=== PATIENT | male | born 1950 | race Caucasian/White ===

== ENCOUNTER 2018-04-30 16:59 | Inpatient (IN) | payer MEDICARE ==
[2018-04-30] MEDS ORDERED: Heparin for STEMI(*) 5,000 UNITS/ML 1 ML VIAL IV ONE ×2 (17:03→17:06)
[2018-04-30] MEDS ORDERED: Nitroglycerin TAB 0.4 MG* 0.4 MG TAB ONE (17:03)
[2018-04-30] MEDS ORDERED: Heparin DRIP 25,000 UNITS(*) 25,000 UNITS/500 ML BAG ONE (17:04)
[2018-04-30] MEDS ORDERED: Ticagrelor* 90 MG TAB PO ONE ×2 (17:04→17:35)
[2018-04-30] MEDS ORDERED: nitroGLYCERIN DRIP* 25,000 MCG/250 ML BTL ONE ×2 (17:04→17:11)
[2018-04-30] MEDS ORDERED: nitroGLYCERIN DRIP* 25,000 MCG in PREMIX* 0 ML IV ONE (17:06)
--- NOTE | 2018-04-30 17:07 | ED ---
HPI Chest Pain - HPI Summary HPI Summary: Pt is a 68 y/o male brought in by EMS who presents to the ED c/o CP. As per , he woke up this morning with mild CP that radiates to his left arm. Pt went to work, and the CP became worse throughout the day. 2 hours ago, he began to have severe CP. He also c/o N/V, dizziness, and mild diaphoresis. As per son, he believes pt has not been to the doctor in many years. Pt denies any hx of HTN , DM, or cardiac disease. Pts EKG was read and Dr. Ellington was called ASSOCIATE [employer]. Pt had 325 mg of ASA earlier today. As per EMS, NTG helped relieve the pain temporarily, but the pain returned and his BP went up to 185/115. Pt denies any alcohol use, and hasnt smoked in 30 years. He does not take any medications. 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 - , son, EMS Onset/Duration: Started Hours Ago - This morning, Worse Since Timing: Constant Initial Severity: Mild Current Severity: Severe Pain Scale Used: 0-10 Numeric Chest Pain Location: Mid Sternal Chest Pain Radiates: Yes Chest Pain Radiates To:: Arm - left Alleviating Factor(s): NTG 123 Associated Signs and Symptoms: Positive: Chest Pain, Dizziness, Diaphoresis, Nausea, Vomiting - Allergy/Home Medications Allergies/Adverse Reactions: Allergies Allergy/AdvReac Type Severity Reaction Status Date / Time MS Penicillin G Benzathine Allergy Unknown Verified 04/12/15 15:46 [From Bicillin] Reaction Details Home Medications: Home Medications Aspirin TAB* [Aspirin 325 MG TAB*] 325 mg PO ONCE 04/30/18 [History Confirmed ] PMH/Surg Hx/FS Hx/Imm Hx Endocrine/Hematology History: Denies: Hx Diabetes Cardiovascular History: Denies: Hx Hypertension, Hx Myocardial Infarction - Family History Known Family History: Positive: Other - Mental illness Negative: Cardiac Disease, Hypertension - Social History Alcohol Use: None Hx Substance Use: No Substance Use Type: Reports: None Hx Tobacco Use: Yes Smoking Status (MU): Former Smoker Review of Systems Positive: Skin Diaphoresis Positive: Chest Pain Positive: Vomiting, Nausea Neurological: Other - Dizziness All Other Systems Reviewed And Are Negative: Yes Physical Exam - Summary Physical Exam Summary: Appearance: Well appearing, moderate pain distress Skin: warm, dry, reflects adequate perfusion Head/face: normal Eyes: EOMI, MARCO ANTONIO ENT: normal Neck: supple, non-tender Respiratory: CTA, breath sounds present Cardiovascular: RRR, pulses symmetrical Abdomen: non-tender, soft Musculoskeletal: normal, strength/ROM intact Neuro: normal, sensory motor intact, A&Ox3 Triage Information Reviewed: Yes Vital Signs Reviewed: Yes Diagnostics - Laboratory Result Diagrams: 04/30/18 17:35 04/30/18 17:35 Lab Statement: Any lab studies that have been ordered have been reviewed, and results considered in the medical decision making process. - EKG 17:01 Cardiac Rate: NL - 71 bpm EKG Rhythm: Sinus Rhythm Summary of EKG Findings: [id number]-[id number] STEMI. Chest Pain Course/Dx - Course Course Of Treatment: Pt is a 68 y/o male brought in by EMS who presents to the ED c/o CP. As per , he woke up this morning with mild CP that radiates to his left arm. Pt went to work, and the CP became worse throughout the day. 2 hours ago, he began to have severe CP. He also c/o N/V, dizziness, and mild diaphoresis. As per son, he believes pt has not been to the doctor in many years. Pt denies any hx of HTN, DM, or cardiac disease. Pts EKG was read and Dr. Ellington was called ASSOCIATE [employer]. Pt had 325 mg of ASA earlier today. As per EMS, NTG helped relieve the pain temporarily, but the pain returned and his BP went up to 185/115. Pt denies any alcohol use, and hasnt smoked in 30 years. He does not take any medications. A physical exam revealed moderate pain distress. An EKG revealed a rate of 71 bpm, and [id number] STEMI. In the course pt was given NTG and Heparin. Dr. Ellington arrived in the ED at 17:00, and accepts pt for admission. Pt will be taken to the cardiac cath lab manager. Final dx is STEMI. - Chest Pain Differential Diagnosis/HQI/PQRI: Acute SD, ACS, Chest Wall, Lower Respiratory Infection - Diagnoses Provider Diagnoses: STEMI (ST elevation myocardial infarction) - Provider Notifications Discussed Care Of Patient With: Raul Ellington Time Discussed With Above Provider: 17:00 Instructed by Provider To: Other - Dr. Ellington arrived to see the pt in the ED. At 17:12, Dr. Ellington accepts pt for admission for a cardiac cath. - Critical Care Time Critical Care Time: 30-74 min Discharge - Sign-Out/Discharge Documenting (check all that apply): Patient Departure - Admit - Discharge Plan Condition: Fair Disposition: [facility] - Billing Disposition and Condition Condition: FAIR Disposition: Admitted to [facility] - Attestation Statements Document Initiated by Scribe: Yes Documenting Scribe: Sharda Mcgowan Provider For Whom Malgorzataibe is Documenting (Include Credential): Aston Castro MD Scribe Attestation: Sharda Beavers, scribed for Aston Castro MD on 04/30/18 at 1813. Scribe Documentation Reviewed: Yes Provider Attestation: The documentation as recorded by the scribeSharda accurately reflects the service I personally performed and the decisions made by Aston muñoz MD Status of Scribe Document: Viewed
[2018-04-30] MEDS ORDERED: Heparin 2 UNITS/ML IVPREMIX* 2,000 ML IV ONE (17:10)
[2018-04-30] MEDS ORDERED: Lidocaine 1% INJ* 10 MG/ML 30 ML SDV ONE (17:10)
[2018-04-30] MEDS ORDERED: Heparin(*) 1000 UNIT/ML 10 ML VIAL CATH LAB IV ONE ×2 (17:11→17:37)
[2018-04-30] MEDS ORDERED: VERAPAMIL 2.5 MG/ML 2 ML VIAL ** 5 mg/2 ml ONE (17:11)
[2018-04-30] MEDS ORDERED: Iohexol 350 (CONTRAST) 200 ML MDV IV ONE ×2 (17:12→17:21)
[2018-04-30] MEDS ORDERED: Midazolam* 1 MG/ML 10 ML VIAL (10 MG) ONE (17:22)
[2018-04-30] MEDS ORDERED: fentaNYL* 50 MCG/ML 2 ML VIAL (100 MCG VIAL) ONE (17:22)
[2018-04-30 17:42] LABS: ABS Basophils 0.1 10^3/ul (0-0.2); ABS Eosinophils 0 10^3/ul (0-0.6); ABS Lymphocytes 1.8 10^3/ul (1.0-4.8); ABS Monocytes 0.8 10^3/ul (0-0.8); ABS Neutrophils 7.3 10^3/ul (1.5-7.7); ABS Nucleated RBC 0 10^3/ul; Eosinophil % 0.4 %; Hematocrit 45 % (42-52); Hemoglobin 15.7 g/dl (14.0-18.0); Lymphocyte % 17.9 %; Mean Corpuscular HGB Conc 35 g/dl (31-36); Mean Corpuscular Hemoglobin 30 pg (27-31); Mean Corpuscular Volume 87 fL (80-94); Mean Platelet Volume 7.5 fL (7.4-10.4); Nucleated Red Blood Cells % 0.1; Platelet Count 238 10^3/ul (150-450); Red Blood Count 5.25 10^6/ul (4.00-5.40); Red Cell Distribution Width 14 % (10.5-15)
[2018-04-30] MEDS ORDERED: NitroPRUSSide* 25 MG/ML 2 ML VIAL IVPB ONE (17:46)
[2018-04-30 17:59] LABS: EGFR Non-African American 64.3 (>60)
[2018-04-30 18:15] LABS: INR 0.99 (0.77-1.02)
[2018-04-30] MEDS ORDERED: Acetaminophen TAB* 325 MG PO PRN (18:24)
[2018-04-30] MEDS ORDERED: Zolpidem TAB* 5 MG PO PRN (18:24)
[2018-04-30] MEDS ORDERED: Nitroglycerin TAB 0.4 MG* 0.4 MG TAB SL PRN (18:24)
[2018-04-30] MEDS ORDERED: NS 0.9% 1000 ML* 400 ML IV SCH (18:30)
[2018-04-30] MEDS ORDERED: Potassium Chlor TAB* 20 MEQ TAB.ER PO ONE (19:15)
[2018-04-30] MEDS: Atorvastatin* 80 MG TAB PO SCH (20:03)
[2018-04-30] MEDS: Captopril TAB* 12.5 MG PO SCH (20:04)
[2018-04-30] MEDS: Metoprolol Tartrate TAB* 25 MG PO SCH (20:04)
[2018-04-30] MEDS: Ticagrelor* 90 MG TAB PO SCH (21:13)
[2018-05-01] MEDS: Metoprolol Tartrate TAB* 25 MG PO SCH ×2 (00:35→01:10)
[2018-05-01] MEDS ORDERED: Metoprolol Tartrate TAB* 25 MG PO ONE (01:00)
[2018-05-01] MEDS ORDERED: Metoprolol Tartrate TAB* 25 MG ONE (01:09)
--- NOTE | 2018-05-01 01:09 | HP ---
HISTORY AND PHYSICAL: DATE OF ADMISSION: 04/30/18 PRIMARY CARE PHYSICIAN: None. HISTORY OF PRESENT ILLNESS: This 68-year-old male brought by EMS with acute inferolateral ST elevation infarct. He has no previous medical history or cardiac history. At around 6 o'clock this morning after he did some heavy physical work, he had a 10 to 15-minute episode of chest discomfort, which radiated to the left arm, resolves spontaneously. He was on no medication, has not been on aspirin. He went to work, at around 1:30 this afternoon, he started to have recurrence of chest pain, which would wax and wane in intensity , when severe would radiate to the left arm. He finally went home, they called EMS. EKG by EMS at 1636 hours showed J- point and ST elevation in the inferior and lateral precordial leads with reciprocal right precordial ST depression. EKG in our ER confirmed an acute inferolateral ST elevation infarct and he was brought to the oil field laborer. Per EMS, his blood pressure was as high as 286/156, he received 6 nitroglycerin en route with some improvement in his chest pain, but not resolution, also received 324 mg of aspirin. In the ER, he received 5000 units of IV heparin, IV nitroglycerin was started. PAST MEDICAL HISTORY: No known history of hypertension, hyperlipidemia, but he has not had any medical attention for years. He does not check his blood pressure regularly. PRE-HOSPITAL MEDICATIONS: None. ALLERGIES: None to medications. FAMILY HISTORY: Negative for premature coronary disease. SOCIAL HISTORY: He is . He works in a [employer] department. REVIEW OF SYSTEMS: General: No weight loss. No fevers. TAPE WEAVER: No history of TIA or CVA. GI: No peptic ulcer disease or bleeding. Circulatory: No claudication. Heme: No history of malignancy or anemia. Endocrine: No known history of diabetes. Remainder all negative. PHYSICAL EXAMINATION GENERAL: He was in significant pain and distress, was diaphoretic. VITAL SIGNS: Initial ER BP 186/116, heart rate 66, temp 99. HEENT: Unremarkable without xanthelasma, scleral injection, or jaundice. EOMs normal. Cranial nerves grossly intact. LUNGS: Clear to percussion and auscultation. CARDIAC EXAM: [place] not palpable, RV not palpable, regular rhythm, no audible gallop or murmur. ABDOMEN: Soft, nontender. No bruit. Aorta not palpable. Liver edge not palpable. No masses. Femoral pulses 2+. No bruits. EXTREMITIES: Radial pulses 2+, pedal pulses 2+. No cyanosis, clubbing, or edema. SKIN: He was diaphoretic, perfused. PSYCH: Oriented, appropriate, complaining of severe chest and left arm pain. DIAGNOSTIC STUDIES/LAB DATA: CBC is unremarkable. BMP with a low potassium of 3.2, creatinine 1.14. GFR 64.3. Random sugar 179. Total CPK elevated at 231 with MB of 15.4. Troponin 0.62. BNP normal at 75. Cholesterol 240, triglycerides 118, LDL 165, direct 157, HDL 51.7. IMPRESSION: 1. Acute inferolateral ST elevation infarct. He has had some stuttering pain for several hours prior to presentation. Markers are already elevated consistent with relatively late presentation. He was markedly hypertensive at presentation, without any known prior hypertension, but he has also not had any medical attention. He underwent emergent catheterization and revascularization. 2. Hypertension. 3. Hyperlipidemia. [id number]/[facility] #: [id number] [facility]
[2018-05-01] MEDS ORDERED: Magnesium Sulfate 1 GM IV* 1 GM/100 ML BAG IV PRN (01:30)
[2018-05-01] MEDS: Captopril TAB* 12.5 MG PO SCH ×3 (02:31→18:28)
[2018-05-01] MEDS ORDERED: Magnesium Sulfate 1 GM IV* 1 GM/100 ML BAG IV ONE (03:00)
[2018-05-01] MEDS ORDERED: nitroGLYCERIN DRIP* 25,000 MCG/250 ML BTL IV SCH (04:00)
[2018-05-01 06:05] LABS: EGFR Non-African American 84.4 (>60)
[2018-05-01] MEDS: Ticagrelor* 90 MG TAB PO SCH ×2 (08:46→21:34)
[2018-05-01] MEDS: Metoprolol Tartrate TAB* 50 mg PO SCH ×2 (08:46→16:56)
[2018-05-01] MEDS: Aspirin 81 mg CHEW TAB* 81 MG TAB.CHEW PO SCH (08:46)
--- NOTE | 2018-05-01 11:21 | CATH ---
STENT REPORT: DATE OF PROCEDURE: 04/30/18 - ROOM #ICU-08 PROCEDURES: 1. Right radial artery access. 2. Bilateral selective coronary cineangiography. 3. Left heart catheterization. 4. Stent placement circumflex 2.75 x 20 Synergy drug-eluting stent, post- dilated with NC balloon to 18 atmospheres. HISTORY: A 68-year-old male with acute inferolateral ST elevation infarct. PROCEDURE ACCESS: Right radial artery sheath 6F slender. MEDICATIONS: 1. Subcu lidocaine. 2. IV Versed. 3. IV fentanyl. 4. Titrated IV nitroglycerin. 5. Heparin 5000 units given in the ER. 6. Radial cocktail nitroglycerin 300 mcg, verapamil 3 mg IA. 7. Brilinta 180 mg p.o. loading dose. 8. Heparin 3000 units. 9. IC Nipride total 1000 mcg post stenting. At the termination of the cath, nitroglycerin at 35 mcg per minute. DIAGNOSTIC CATHETER: 5F TIG4. GUIDING CATHETER: 6F VL 3.5 wire 14 BMW, which easily crossed the mid circumflex occlusion, which was then stented with a 2.75 x 20 Synergy drug- eluting stent and post dilated with a 2.75 x 20 NC balloon to 18 atmospheres for 30 seconds. Because of some residual chest pain and still residual J-point elevation, he received a total of 1000 mcg of intracoronary Nipride with resolution of chest discomfort and J-point elevation. HEMODYNAMICS: Initial AO 179/99. LV post revascularization 182/24, no aortic valve gradient on pullback when considering the catheter fling in the LV. ANGIOGRAPHY: RCA: The RCA is large, dominant, has mild scattered luminal irregularity, supplies a moderate PDA and several small and then a moderate posterolateral branch. The RCA has no significant stenosis. Left main: The left main is relatively short, has no stenosis. LAD: The LAD is moderate with luminal irregularity, but no significant stenosis , supplies a moderate first diagonal branch. The mid LAD then has a 40% to 50% stenosis. Circumflex: The circumflex is not dominant, is large, supplies a small marginal followed by a small to moderate second marginal and the circumflex is then occluded. Prior to the second marginal, the circumflex has an eccentric 30 % to 40% stenosis. After crossing with the wire, there is a high grade stenosis at the origin of circumflex continuation, straddling the AV groove continuation, which is very small, bifurcated, and has ostial 60% to 70% stenosis, it is too small for intervention. After stent placement, from OM2 back to the AV groove circumflex, there was no residual stenosis, distal TIMI3 flow. Myocardial blush appears normal. CONCLUSION: 1. Two-vessel disease with angiographically insignificant mid LAD stenosis, culprit mid circumflex occlusion with inferolateral ST elevation in the infarct presentation. Excellent angiographic result with drug-eluting stent placement. 2. Marked hypertension with elevated LVDP. 3. Successful right radial artery access. [id number] #: [id number] MTDD
--- NOTE | 2018-05-01 11:58 | ECHO ---
Patient: OLIVIA TREVIZO [facility] Rec#: [id number] : 1950 Date: 05/01/2018 Age: 68y Height: 178 cm / 70.1 in Weight: 79.4 kg / 175.0 lbs Sex: M BSA: 1.97 Room#: [facility] Admit Date#: 04/30/2018 Type: Inpatient Referring: Raul Ellington MD Reading: Tirso Kearns DO Rolling Chair Pusher: Estefany Parks RD Transthoracic Echocardiogram Indication: Myocardial Infarction BP: 150/92 HR: 82 Rhythm: NSR Findings History: HTN, HLD. Technical Comments: The study quality is fair. Completed at 0830. Left Ventricle: The left ventricular chamber size is normal. Mild concentric left ventricular hypertrophy is observed. There is a focal wall motion abnormality present. Left ventricular systolic function is at the lower limits of normal. The estimated ejection fraction is 50-55%. Abnormal left ventricular diastolic function is observed. The basal inferolateral, and mid inferolateral wall segments are hypokinetic (score 2). Overall wallmotion score index is 1.50 Left Atrium: The left atrium is mildly dilated. Right Ventricle: The right ventricular cavity size is normal. The right ventricular global systolic function is mildly reduced. Right Atrium: The right atrium is mildly dilated. Aortic Valve: The aortic valve is trileaflet. The aortic valve leaflets are mildly thickened. There is no evidence of aortic regurgitation. There is no evidence of aortic stenosis. Mitral Valve: The mitral valve leaflets are mildly thickened. There is a trace of mitral regurgitation. There is no evidence of mitral stenosis. Tricuspid Valve: The tricuspid valve leaflets are normal. There is a physiologic tricuspid regurgitation. Unable to estimate the right ventricular systolic pressure. There is no tricuspid stenosis. Pulmonic Valve: There is no evidence of pulmonic valve thickening. There is a trace pulmonic regurgitation. There is no pulmonic stenosis. Pericardium: There is no significant pericardial effusion. Aorta: There is no dilatation of the ascending aorta. There is no dilatation of the aortic arch. There is mild dilatation of the aortic root. Pulmonary Artery: The main pulmonary artery is not well visualized. Venous: The inferior vena cava appears normal in size. There is a greater than 50% respiratory change in the inferior vena cava dimension. Conclusions The left ventricular chamber size is normal. Mild concentric left ventricular hypertrophy is observed. There is low normal left ventricular systolic function. The estimated ejection fraction is 50-55% with hypokinesis of the inferolateral and apical lateral wall The left atrium is mildly dilated. The right ventricular cavity size is normal. The right ventricular global systolic function is mildly reduced. No significant valvular abnormalities noted Unable to estimate the right ventricular systolic pressure. There is mild dilatation of the aortic root. None prior for comparison at time of interpretation Measurements Name Value Normal Range RVIDd (AP) 2D 3.2 cm (0.9 - 2.6) RVDdMajor (2D) 4.5 cm (2.2 - 4.4) RAd ISD 4CH 5.2 cm (3.4 - 4.9) RA (A4C)W 4.8 cm (2.9 - 4.6) IVSd (2D) 1.2 cm (0.6 - 1) LVPWd (2D) 1.3 cm (0.6 - 1) LVIDd (2D) 4.1 cm (3.6 - 5.4) LVIDs (2D) 2.6 cm - LV FS (2D) 35 % (25 - 45) Aortic Annulus 2 cm (1.4 - 2.6) Ao root diameter (2D) 3.6 cm (2.1 - 3.5) Ascending Ao 3.2 cm (2.1 - 3.4) Aortic arch 2.1 cm (1.8 - 3.4) LA dimension (AP) 2D 3.5 cm (2.3 - 3.8) LAd ISD 4CH 5.6 cm (2.9 - 5.3) LA ISD 4CH W 4.3 cm (2.5 - 4.5) Name Value Normal Range LA ESV BP (A/L) index 30 ml/m2 - Name Value Normal Range MV E-wave Vmax 0.4 m/sec - MV deceleration time 324 msec - MV A-wave Vmax 0.5 m/sec - MV E:A ratio 0.7 ratio - LV septal e' Vmax 0.06 m/sec - LV lateral e' Vmax 0.07 m/sec - LV E:e' septal ratio 6.67 ratio - LV E:e' lateral ratio 5.71 ratio - Name Value Normal Range AV Vmax 1.3 m/sec - AV VTI 21.8 cm - AV peak gradient 6 mmHg - AV mean gradient 3 mmHg - LVOT Vmax 1 m/sec - LVOT VTI 17.7 cm - LVOT peak gradient 4 mmHg - LVOT mean gradient 2 mmHg - YEYO Vmax 0.7 m/sec - Name Value Normal Range IVC diameter 1.5 cm - Name Value Normal Range PV Vmax 1 m/sec - PV peak gradient 4 mmHg - Wallmotion BAS Not Seen BA Not Seen BAL Not Seen LESLIE Hypokinetic BI Not Seen BIS Not Seen MAS Not Seen MA Not Seen MAL Normal MIL Hypokinetic ID Not Seen MIS Not Seen Not Seen AA Not Seen AL Normal AI Not Seen APEX Not Seen
[2018-05-01] MEDS: Atorvastatin* 80 MG TAB PO SCH (16:55)
[2018-05-02] MEDS: Metoprolol Tartrate TAB* 50 mg PO SCH ×3 (00:33→17:56)
[2018-05-02] MEDS: Captopril TAB* 12.5 MG PO SCH (03:14)
[2018-05-02 08:22] LABS: EGFR Non-African American 63.6 (>60)
[2018-05-02] MEDS: Ticagrelor* 90 MG TAB PO SCH ×2 (08:46→20:42)
[2018-05-02] MEDS: Aspirin 81 mg CHEW TAB* 81 MG TAB.CHEW PO SCH (08:46)
[2018-05-02] MEDS ORDERED: Lisinopril TAB* 5 MG PO SCH (09:00)
[2018-05-02] MEDS ORDERED: Omeprazole CAP* 20 MG PO ONE (16:22)
[2018-05-02] MEDS: Atorvastatin* 80 MG TAB PO SCH (17:56)
[2018-05-03] MEDS: Metoprolol Tartrate TAB* 50 mg PO SCH ×3 (00:40→16:55)
[2018-05-03] MEDS: Omeprazole CAP* 20 MG PO SCH (06:07)
[2018-05-03 06:15] LABS: ABS Basophils 0.1 10^3/ul (0-0.2); ABS Eosinophils 0.3 10^3/ul (0-0.6); ABS Lymphocytes 1.8 10^3/ul (1.0-4.8); ABS Monocytes 1.2 10^3/ul (0-0.8); ABS Neutrophils 7.2 10^3/ul (1.5-7.7); ABS Nucleated RBC 0 10^3/ul; Eosinophil % 2.5 %; Hematocrit 43 % (42-52); Hemoglobin 14.6 g/dl (14.0-18.0); Lymphocyte % 17.2 %; Mean Corpuscular HGB Conc 34 g/dl (31-36); Mean Corpuscular Hemoglobin 30 pg (27-31); Mean Corpuscular Volume 88 fL (80-94); Mean Platelet Volume 7.2 fL (7.4-10.4); Nucleated Red Blood Cells % 0.1; Platelet Count 231 10^3/ul (150-450); Red Cell Distribution Width 14 % (10.5-15); White Blood Count 10.5 10^3/ul (3.5-10.8)
[2018-05-03 06:34] LABS: EGFR Non-African American 53.3 (>60)
[2018-05-03] MEDS: Aspirin 81 mg CHEW TAB* 81 MG TAB.CHEW PO SCH (08:55)
[2018-05-03] MEDS: Ticagrelor* 90 MG TAB PO SCH ×2 (08:55→20:55)
[2018-05-03] MEDS ORDERED: Lisinopril TAB* 5 MG PO SCH (09:00)
[2018-05-03] MEDS: Atorvastatin* 80 MG TAB PO SCH (16:55)
[2018-05-04] MEDS: Metoprolol Tartrate TAB* 50 mg PO SCH ×2 (00:19→08:29)
[2018-05-04] MEDS: Omeprazole CAP* 20 MG PO SCH (05:24)
[2018-05-04 08:25] VITALS: BP 128/75
[2018-05-04] MEDS: Aspirin 81 mg CHEW TAB* 81 MG TAB.CHEW PO SCH (08:29)
[2018-05-04] MEDS: Ticagrelor* 90 MG TAB PO SCH (08:29)
[2018-05-04 09:03] LABS: EGFR Non-African American 57.8 (>60)
--- NOTE | 2018-05-04 23:46 | DS ---
CC: Dr. Raul Ellington; Dr. Jethro Sherwood * DISCHARGE SUMMARY: DATE OF ADMISSION: DATE OF DISCHARGE: 05/04/18 FINAL DIAGNOSIS: Late presentation inferolateral wall ST-segment elevation myocardial infarction. SECONDARY DIAGNOSES: Include: 1. Stenotic coronary artery disease. 2. Hyperlipidemia. 3. Question new onset diabetes mellitus. HOSPITAL COURSE: The patient is a pleasant 68-year-old gentleman who presented to [facility] in the throes of an acute ST segment elevation inferolateral wall myocardial infarction. He was noted to be markedly hypertensive as well when in the ambulance and was given multiple nitroglycerins. In the emergency room, he received 5000 units of heparin intravenously, IV nitroglycerin was started and he was taken emergently to the cardiovascular laboratory. In the cardiovascular laboratory, cardiac catheterization revealed a totally occluded circumflex after first and second obtuse marginal branch. There was a 30 to 40% stenosis seen prior to the second marginal branch. The left anterior descending artery had a mid lesion that Dr. Ellington felt was 40% to 50%. The right coronary artery had scattered luminal irregularities, but no significant stenosis. He underwent intervention with the wire placed and injections then showed a high-grade stenosis at the point of obstruction straddling an AV groove continuation, which was a very small bifurcated area and had an ostial 60% to 70% stenosis that was too small for intervention. He underwent stent placement from the second obtuse marginal into the AV groove circumflex with no residual stenosis. A 2.75 x 20 mm Synergy drug- eluting was deployed. During his hospitalization, an echocardiogram was performed on 05/01/18, which revealed overall EF to be 50% to 55% with the basal inferolateral and mid inferolateral wall segments hypokinetic. There was mild concentric left ventricular hypertrophy. The left atrium was mildly dilated. Right ventricular systolic function was mildly reduced. There was mild dilatation of the ascending aorta. During the course of the hospitalization, the patient's CPK peaked at 725 with an MB of 117.8. His EKGs revealed the evolution of the inferolateral myocardial infarction with his last EKG on 05/03/18 demonstrating subtle T-wave inversion in V5 and V6 with a somewhat 10 o'clock wright progression to the R waves and the precordial leads from his posterior infarction. Laboratory results also revealed a hemoglobin A1c of 6.0. He did appear to have glucoses that were borderline elevated and in the 110 to 120 range. He was up and about walking the halls without any significant symptoms with no significant rhythm disturbances. Of note, his BUN and creatinine did rise postcardiac catheterization to 25 and 1.3 from starting at 11 and 0.9. His lisinopril was therefore held. On day of discharge, his creatinine had come down to 1.25. PHYSICAL EXAMINATION: On the day of discharge, vital signs revealed blood pressure 128/75, pulse was 60 and regular, respirations 16, O2 saturation 96% on room air, temperature 98.3. Neck was supple. No increased JVP. Carotid with good upstroke and volume without bruits. Conjunctivae are pink. Sclerae are clear. Lungs reveal no accessory muscle usage. There was good excursion. There were no active rales, rhonchi, or wheezes. Heart revealed no visible heaves. No palpable heaves or thrills. Normal S1, S2. Bradycardic rate noted. No significant systolic or diastolic murmur appreciated. Abdomen was soft, nontender, without organomegaly. Extremities without clubbing, cyanosis, or allen pitting edema. Peripheral pulses were intact. The right radial artery site was well healed. There was good pulse and good anterior flow. The patient will be seen in 2 days from now in the office with a repeat BMP to follow his renal function and make sure it is continuing to decrease. Consideration for starting low dose lisinopril at 2.5 mg at that time will be made. The patient does not have a primary care physician and I have instructed him he needs to seek out getting a primary care physician up where he lives as he favors doing that rather than in the [place] area. If he has not made plans for this by the time we see him on Saturday, we will discuss whether or not he wants to get someone in [place]. MEDICATIONS AT THE TIME OF DISCHARGE: Included: 1. Aspirin 81 mg a day. 2. Atorvastatin 80 mg a day. 3. Metoprolol tartrate 50 mg every 8 hours. 4. Ticagrelor 90 mg twice a day (of note, he was given a 1-month supply. He was concerned about financially being able to remain on Ticagrelor. We will discuss this in the office whether or not we will switch him to clopidogrel). 5. Prilosec 20 mg daily. The patient was given a cardiac education booklet and a stent card. I have reviewed all these with him, he understands them and I answered all his questions to his satisfaction. [id number]/[facility] #: [id number] [place]
== END 2018-05-04 10:25 | disposition home or self-care (01) | DRG 247 ==
LOC: ED 16:59 → CHICATH 17:18 → ICU 18:19 → MEDTELE 05-02 12:35
PROVIDERS: ADMIT Internal Medicine Cardiovascular Disease; ATTEND Internal Medicine Cardiovascular Disease
PROC: 4A023N7 Measurement of Cardiac Sampling and Pressure, Left Heart, Percutaneous Approach (ICD-10-PCS; 2018-04-30)
PROC: B211YZZ Fluoroscopy of Multiple Coronary Arteries using Other Contrast (ICD-10-PCS; 2018-04-30)
PROC: 027034Z Dilation of Coronary Artery, One Artery with Drug-eluting Intraluminal Device, Percutaneous Approach (ICD-10-PCS; principal; 2018-04-30 17:00)
DX: I21.19 ST elevation (STEMI) myocardial infarction involving other coronary artery of inferior wall (principal); I25.119 Atherosclerotic heart disease of native coronary artery with unspecified angina pectoris; I11.9 Hypertensive heart disease without heart failure; E78.5 Hyperlipidemia, unspecified
CPT/HCPCS: 36415; 80048; 80053; 80061; 82550; 82553; 83036; 83721; 83735; 83880; 84484; 85025; 85347; 85610; 85730; 86850; 86900; 86901; 87641; 93005; 93306; 99156; 99157; 99284; A9270-GY; C1725; C1769; C1876; C1887; C9606-LC; J1644; J2250; J3010; J3475

== ENCOUNTER 2019-08-13 00:55 | Emergency (ER) | payer MEDICARE ==
[2019-08-13] MEDS ORDERED: Ticagrelor* 90 MG TAB PO ONE (01:00)
[2019-08-13] MEDS ORDERED: nitroGLYCERIN DRIP* 25,000 MCG in PREMIX* 0 ML IV ONE (01:00)
[2019-08-13] MEDS ORDERED: Heparin for STEMI(*) 5,000 UNITS/ML 1 ML VIAL IV ONE (01:00)
--- NOTE | 2019-08-13 01:03 | ED ---
HPI Chest Pain - HPI Summary HPI Summary: 69 year old M with hx OH and cardiac stent placement arriving via EMS to [facility] complains of chest pain starting 2350 08/12/19. Hx cardiac stent placement in 2018. Patient developed chest pain 1 hour prior to arrival and called EMS. EKG done by EMS showed ST elevations anteriorly. The patient rates the pain 8/10 in severity. Symptoms aggravated by nothing. Symptoms alleviated by nitroglycerin and fentanyl which were given by EMS. Medications reviewed. On aspirin. Allergies noted. Home Medications Medication Instructions Recorded Confirmed Type Aspirin 81 mg CHEW TAB* 81 mg PO DAILY tab.chew 05/04/18 Rx Atorvastatin* [Lipitor 80 MG*] 80 mg PO 1700 #90 tab 05/04/18 Rx Metoprolol Tartrate TAB* 50 mg PO Q8H #90 tab 05/04/18 Rx [Lopressor TAB*] Nitroglycerin TAB 0.4 MG* 0.4 mg SL Q5M PRN #15 tab 05/04/18 Rx Omeprazole CAP (NF) [Prilosec CAP* 20 mg PO DAILY@0600 cap 05/04/18 Rx 20 MG] Ticagrelor* [Brilinta 90 MG*] 90 mg PO BID tab 05/04/18 Rx - History of Current Complaint Hx Obtained From: Patient, EMS Onset/Duration: Started Hours Ago - 1, Still Present Timing: Constant Current Severity: Severe Pain Intensity: 8 Pain Scale Used: 0-10 Numeric Aggravating Factor(s): Nothing Alleviating Factor(s): NTG 123, Other: - fentanyl - Additional Pertinent History Primary Care Physician: ERICA - Allergy/Home Medications Allergies/Adverse Reactions: Allergies Allergy/AdvReac Type Severity Reaction Status Date / Time penicillin G Allergy Unknown Verified 04/30/18 19:00 Reaction Details Home Medications: Home Medications Aspirin 81 mg CHEW TAB* 81 mg PO DAILY tab.chew 05/04/18 [Rx] Atorvastatin* [Lipitor 80 MG*] 80 mg PO 1700 #90 tab 05/04/18 [Rx] Metoprolol Tartrate TAB* [Lopressor TAB*] 50 mg PO Q8H #90 tab 05/04/18 [Rx] Nitroglycerin TAB 0.4 MG* 0.4 mg SL Q5M PRN #15 tab 05/04/18 [Rx] Omeprazole CAP (NF) [Prilosec CAP* 20 MG] 20 mg PO DAILY@0600 05/04/18 [ Rx] Ticagrelor* [Brilinta 90 MG*] 90 mg PO BID tab 05/04/18 [Rx] PMH/Surg Hx/FS Hx/Imm Hx Endocrine/Hematology History: Denies: Hx Diabetes Cardiovascular History: Reports: Hx Myocardial Infarction Denies: Hx Hypertension Sensory History: Reports: Hx Contacts or Glasses Opthamlomology History: Reports: Hx Contacts or Glasses - Surgical History Surgery Procedure, Year, and Place: left pinky finger amputation. stent - Family History Known Family History: Positive: Other - Mental illness Negative: Cardiac Disease, Hypertension - Social History Alcohol Use: Rare Hx Substance Use: No Substance Use Type: Reports: None Hx Tobacco Use: Yes Smoking Status (MU): Former Smoker Type: Cigarettes Amount Used/How Often: 36 years ago Review of Systems Negative: Fever Positive: Chest Pain All Other Systems Reviewed And Are Negative: Yes Physical Exam - Summary Physical Exam Summary: Appearance: Ill-appearing, uncomfortable male lying in stretcher in no acute distress Skin: [place], warm, dry, no diaphoresis Eyes: sclera anicteric, no conjunctival pallor HENT: mucous membranes moist, pharynx appears normal Neck: Supple, nontender Respiratory: Clear to auscultation, no signs of respiratory distress Cardiovascular: Normal S1, S2. No murmurs. Normal distal pulses in tibial and radial bilaterally. Abdomen: Soft, nontender, normal active bowel sounds present Musculoskeletal: Normal, Strength/ROM Intact Neurological: A&Ox3, awake and alert, mentation is normal, speech is fluent and appropriate Psychiatric: affect is normal, does not appear anxious or depressed Triage Information Reviewed: Yes Vital Signs Reviewed: Yes Procedures - Sedation Patient Received Moderate/Deep Sedation with Procedure: No Diagnostics - Laboratory Result Diagrams: 08/13/19 01:05 08/13/19 01:05 Lab Statement: Any lab studies that have been ordered have been reviewed, and results considered in the medical decision making process. - Radiology CXR Radiology Interpretation Completed By: ED Physician - NO ACUTE PROCESS. Pending official report. - EKG 0101 Summary of EKG Findings: Sinus rhythm with extensive ST elevations in V1-V4. ED physician has reviewed and interpreted this EKG Re-Evaluation - Re-Evaluation First Eval Re-Evaluation Time: 01:25 - Dr. Sherwood in ED to see patient Second Eval Re-Evaluation Time: 01:35 - Dr. Sherwood accepts patient Chest Pain Course/Dx - Course Course Of Treatment: 69 y/o M with hx OH and cardiac stent placement in 2018 presents with chest pain starting 1 hour prior to arrival. EKG done by EMS showed ST elevations anteriorly. EMS gave nitroglycerin and fentanyl which improved his pain. The patient is an ill-appearing, uncomfortable male lying in stretcher in no acute distress. The skin is pink, warm, dry, no diaphoresis. Bloodwork results with no significant abnormalities except for creatinine 1.20 , glucose 158, lactic acid 2.4, troponin 0.21, BNP 106. CXR shows no acute process. An EKG shows sinus rhythm with extensive ST elevations in V1-V4. In the ED course, the patient was given Brilinta, morphine, and started on heparin and nitroglycerin drips. Dr. Sherwood came to see the patient and agreed to admit patient. - Diagnoses Provider Diagnoses: Acute ST elevation myocardial infarction During the Visit The Following Alert/Code Occurred: STEMI - 0058 - Provider Notifications Discussed Care Of Patient With: Jethro Sherwood Time Discussed With Above Provider: 01:02 Instructed by Provider To: Will See In ED Discharge ED - Sign-Out/Discharge Documenting (check all that apply): Patient Departure - Discharge Plan Condition: Stable Disposition: ADMITTED TO [facility] Referrals: No Primary Care Phys,NOPCP [Primary Care Provider] - - Billing Disposition and Condition Condition: STABLE Disposition: Admitted to [facility] - Attestation Statements Document Initiated by German: Yes Documenting Scribe: Angelina Samson Provider For Whom German is Documenting (Include Credential): MD Malgorzata Chávezibalisa Attestation: Angelina Beavers, scribed for Tristan Macias MD on 08/14/19 at 0232. Scribe Documentation Reviewed: Yes Provider Attestation: The documentation as recorded by the Angelina cloud accurately reflects the service I personally performed and the decisions made by me, Tristan Macias MD Status of Scribe Document: Viewed
[2019-08-13 01:24] LABS: ABS Basophils 0.1 10^3/ul (0-0.2); ABS Eosinophils 0.2 10^3/ul (0-0.6); ABS Lymphocytes 2.6 10^3/ul (1.0-4.8); ABS Monocytes 0.9 10^3/ul (0-0.8); ABS Neutrophils 4.3 10^3/ul (1.5-7.7); Eosinophil % 2.8 %; Hematocrit 42 % (42-52); Hemoglobin 14.6 g/dL (14.0-18.0); Mean Corpuscular HGB Conc 35 g/dL (31-36); Mean Corpuscular Hemoglobin 31 pg (27-31); Mean Corpuscular Volume 88 fL (80-94); Mean Platelet Volume 7.5 fL (7.4-10.4); Nucleated Red Blood Cells % 0.1; Platelet Count 232 10^3/uL (150-450); Red Blood Count 4.69 10^6 /uL (4.18-5.48); Red Cell Distribution Width 14 % (10-15)
[2019-08-13] MEDS ORDERED: Morphine 4 MG/ML VIAL (1 ml) 4 MG/ML VIAL IV ONE (01:25)
[2019-08-13] MEDS ORDERED: Morphine 4 MG/ML VIAL (1 ml) 4 MG/ML VIAL ONE (01:26)
[2019-08-13] MEDS ORDERED: Heparin(*) 1000 UNIT/ML 10 ML VIAL CATH LAB IV ONE (01:27)
[2019-08-13] MEDS ORDERED: VERAPAMIL 2.5 MG/ML 2 ML VIAL ** 5 mg/2 ml ONE (01:27)
[2019-08-13] MEDS ORDERED: fentaNYL* 50 MCG/ML 2 ML VIAL (100 MCG VIAL) ONE (01:28)
[2019-08-13] MEDS ORDERED: nitroGLYCERIN DRIP* 25,000 MCG/250 ML BTL ONE (01:28)
[2019-08-13] MEDS ORDERED: Iodixanol 320 (CONTRAST) 100 ML SDV ONE ×2 (01:28→02:06)
[2019-08-13] MEDS ORDERED: Heparin 2 UNITS/ML IVPREMIX* 3,000 ML IV ONE (01:28)
[2019-08-13] MEDS ORDERED: Lidocaine 1% INJ* 10 MG/ML 30 ML SDV ONE (01:28)
[2019-08-13] MEDS ORDERED: Midazolam* 1 MG/ML 5 ML VIAL (5 MG) ONE (01:28)
[2019-08-13 01:32] LABS: Activated Partial Thrombo Time 36.6 seconds (26.0-38.0)
[2019-08-13 01:40] VITALS: BP 186/110
[2019-08-13 01:44] LABS: ALT 13 U/L (7-52); AST 19 U/L (13-39); Albumin 3.9 g/dL (3.2-5.2); Albumin/Globulin Ratio 1.4 (1-3); Alkaline Phosphatase 60 U/L (34-104); Anion Gap 7 mmol/L (2-11); BUN/Creatinine Ratio 15.8 (8-20); Blood Urea Nitrogen 19 mg/dL (6-24); CO2 Carbon Dioxide 27 mmol/L (22-32); Calcium 8.8 mg/dL (8.6-10.3); Chloride 105 mmol/L (101-111); Creatine Kinase 91 U/L (10-223); EGFR African American 73.1 (>60); EGFR Non-African American 60.4 (>60); Globulin 2.7 g/dL (2-4); Glucose 158 mg/dL (70-100); LDL Cholesterol Direct 109 mg/dL; Sodium 139 mmol/L (135-145); Total Protein 6.6 g/dL (6.4-8.9)
[2019-08-13 01:48] LABS: Troponin I 0.21 ng/mL (<0.03)
[2019-08-13 02:59] LABS: CKMB ng/mL 5.4 ng/mL (0.6-6.3)
== END 2019-08-13 01:51 | disposition short-term general hospital (02) ==
LOC: ED 00:55
DX: I21.3 ST elevation (STEMI) myocardial infarction of unspecified site (principal); R07.9 Chest pain, unspecified; I25.2 Old myocardial infarction; Z95.5 Presence of coronary angioplasty implant and graft; Z87.891 Personal history of nicotine dependence; Z79.82 Long term (current) use of aspirin; Z88.0 Allergy status to penicillin
CPT/HCPCS: 36415; 80053; 82550; 82553; 83605; 83721; 83880; 84484; 85025; 85347; 85610; 85730; 93005; 96372; 96374; 99285; A9270-GY; J1644; J2250; J2270; J3010

== ENCOUNTER 2019-08-13 01:49 | Inpatient (IN) | payer MEDICARE ==
[2019-08-13] MEDS ORDERED: Nitroglycerin TAB 0.4 MG* 0.4 MG TAB SL PRN (03:14)
[2019-08-13] MEDS ORDERED: Docusate CAP* 100 MG PO PRN (03:14)
[2019-08-13] MEDS ORDERED: Zolpidem TAB* 5 MG PO PRN (03:14)
[2019-08-13] MEDS ORDERED: Ondansetron INJ* 2 MG/ML VIAL IV PRN (03:14)
[2019-08-13] MEDS ORDERED: Acetaminophen TAB* 325 MG PO PRN (03:14)
[2019-08-13] MEDS ORDERED: NS 0.9% 1000 ML** 1,000 ML IV SCH (03:15)
[2019-08-13] MEDS ORDERED: CMCS: Pravastatin (NF) 20 MG TAB PO SCH (04:00)
[2019-08-13] MEDS ORDERED: Ezetimibe TAB* 10 MG PO ONE (04:01)
[2019-08-13] MEDS ORDERED: Lisinopril TAB* 5 MG PO ONE ×2 (04:04→21:00)
[2019-08-13] MEDS ORDERED: nitroGLYCERIN DRIP* 25,000 MCG/250 ML BTL IV SCH ×2 (05:00→13:00)
[2019-08-13] MEDS ORDERED: Morphine INJ* 2 MG/ML 1 ML SYRINGE (TWO MG - NEW SYRINGE VERSION) IV ONE (05:00)
[2019-08-13] MEDS ORDERED: Pantoprazole IV* 40 MG IV ONE (05:00)
[2019-08-13] MEDS: CMCS: Rosuvastatin (NF) 5 MG TAB PO SCH ×2 (05:06→09:12)
--- NOTE | 2019-08-13 06:00 | HP ---
ADMISSION HISTORY AND PHYSICAL: DATE OF ADMISSION: 08/13/19 CHIEF COMPLAINT: The patient with severe chest discomfort. HISTORY OF PRESENT ILLNESS: The patient is a 69-year-old gentleman, known to us from prior cardiac history. Back in 2018, he presented with a posterior wall myocardial infarction and had a stent placed to his circumflex artery to the mid portion of the circumflex after the second marginal branch. He has insignificant disease at that time in the mid LAD. The right coronary artery had scattered luminal irregularities, but no critical stenosis. He initially followed up with Dr. Tirso Kearns, but did not return to follow up since 2018. The patient states over the past week, he has noted episodes of chest discomfort that seem to occur when he was out in the cold. If he got in to warm air, this would go away. He did not seem to relate it being specifically with exertional activity; however, he does not do a lot of overly exertional activity. Tonight he had the onset of symptoms, he stated around 12 midnight or a little after. This time, it was not going away in the chest, going up to his throat. He was short of breath. He called the paramedics whom performed an EKG, and felt that an ST segment elevation, anterior wall myocardial infarction was occurring and told the ER physician, Dr. Macias that the EKG appeared to be consistent with a STEMI (apparently they could not transmit it). When the patient arrived, Dr. Macias called it STEMI. Repeated EKG documented it. The patient had continued ongoing symptoms. The risks and benefits were explained and the patient understood and wished to proceed to the cardiovascular laboratory. Of note, he was given heparin 7000 units in addition to full dose aspirin and 180 mg of Brilinta. PAST MEDICAL HISTORY: Significant for: 1. Hypertension. 2. Hyperlipidemia. 3. Coronary artery disease as mentioned. Of note, he is intolerant of the statins and has not been taking any medication for hyperlipidemia. He is on metoprolol tartrate 50 mg twice a day for his hypertension. It is unclear if he goes to any physician on a regular basis at this point. SOCIAL HISTORY: He is . 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 ALLERGIES: Penicillin, He has intolerance to statins as mentioned, as he developed severe dizziness with a lot of statins. FAMILY HISTORY: Noncontributory for presence of premature coronary artery disease. REVIEW OF SYSTEMS: Pertinent to proceeding emergently to the cardiovascular laboratory. The patient denies any history of TIA or CVA. The patient has no history of hematemesis, hematuria, or hematochezia. He has known history of mild renal insufficiency. He has no allergy to contrast and tolerated last procedure. PHYSICAL EXAMINATION GENERAL: When I saw him reveals a gentleman in acute chest discomfort, complaining about it. VITAL SIGNS: Revealed blood pressure 180/100, down to 150 to 160/90 with IV nitroglycerin, pulse is 70, respirations are 20. NECK: Supple. No increased JVP. Carotids have good upstroke and volume. LUNGS: Clear to A and P. There are no active rales, rhonchi, or wheezes. HEART: Revealed no visible heaves. No palpable heaves or thrills. Heart sounds are somewhat distant in nature. No significant systolic or diastolic murmur. ABDOMEN: Obese, soft, nontender. EXTREMITIES: Without pitting edema. Peripheral pulses are intact. Femoral pulses present bilaterally. Radial pulses strong. NEURO: The patient is alert, oriented with normal mentation. MUSCULOSKELETAL: The patient moves all extremities, appropriate. PSYCHOLOGICAL: The patient appears to be significantly anxious and borderline overreacting to mild stimulus. DIAGNOSTIC STUDIES/LAB DATA: Electrocardiogram reveals sinus bradycardia, heart rate 55. There is ST segment elevation seen in V1 through V4 and mildly in V5 with mild reciprocal changes of minimal ST segment depression in the inferior leads. Laboratory results are pending at the time of evaluation in the emergency room. OVERALL ASSESSMENT: Mr. Thomas now presents with acute ST segment elevation , anterior wall myocardial infarction. The risks and benefits were explained of the cardiac catheterization. He understands them and wished to proceed. He has appropriately received heparin, Brilinta, and aspirin and IV nitroglycerin. Further management will be made pending results of the cardiac catheterization. [id number]/[facility] #: [id number] [facility]
[2019-08-13 06:48] LABS: ABS Lymphocytes 0.9 10^3/ul (1.0-4.8); ABS Monocytes 0.8 10^3/ul (0-0.8); Hematocrit 44 % (42-52); Hemoglobin 14.8 g/dL (14.0-18.0); Lymphocyte % 7.4 %; Mean Corpuscular HGB Conc 34 g/dL (31-36); Mean Corpuscular Hemoglobin 30 pg (27-31); Mean Corpuscular Volume 88 fL (80-94); Mean Platelet Volume 7.8 fL (7.4-10.4); Nucleated Red Blood Cells % 0.1; Platelet Count 228 10^3/uL (150-450); Red Blood Count 4.94 10^6 /uL (4.18-5.48); Red Cell Distribution Width 14 % (10-15); White Blood Count 12.8 10^3/uL (3.5-10.8)
[2019-08-13 06:55] LABS: ALT 35 U/L (7-52); AST 176 U/L (13-39); Albumin 3.8 g/dL (3.2-5.2); Albumin/Globulin Ratio 1.4 (1-3); Alkaline Phosphatase 58 U/L (34-104); Anion Gap 10 mmol/L (2-11); BUN/Creatinine Ratio 18.2 (8-20); Blood Urea Nitrogen 18 mg/dL (6-24); CO2 Carbon Dioxide 21 mmol/L (22-32); Calcium 8.4 mg/dL (8.6-10.3); Chloride 107 mmol/L (101-111); Cholesterol 191 mg/dL; Creatine Kinase 1720 U/L (10-223); EGFR African American 91.2 (>60); EGFR Non-African American 75.4 (>60); Globulin 2.8 g/dL (2-4); Glucose 148 mg/dL (70-100); HDL Cholesterol 39.6 mg/dL; LDL Cholesterol 115 mg/dL; Potassium 4.1 mmol/L (3.5-5.0); Sodium 138 mmol/L (135-145); Total Protein 6.6 g/dL (6.4-8.9); Triglycerides 184 mg/dL
[2019-08-13 06:59] LABS: CKMB ng/mL 243.1 ng/mL (0.6-6.3)
[2019-08-13 07:15] LABS: Troponin I 28.48 ng/mL (<0.03)
[2019-08-13] MEDS ORDERED: Perflutren Lipid Microsphere* 3 ML VIAL ONE (08:04)
[2019-08-13] MEDS: Aspirin 81 mg CHEW TAB* 81 MG TAB.CHEW PO SCH (08:37)
[2019-08-13] MEDS: Ticagrelor* 90 MG TAB PO SCH ×2 (08:37→20:06)
[2019-08-13] MEDS ORDERED: Metoprolol Tartrate TAB* 50 mg PO SCH (09:00)
[2019-08-13] MEDS ORDERED: Isosorbide Mononitrate ER TAB* 30 MG PO SCH (09:00)
[2019-08-13] MEDS ORDERED: Metoprolol Tartrate TAB* 25 MG PO SCH ×2 (09:00→13:00)
--- NOTE | 2019-08-13 09:03 | PN ---
<Dior Bonilla - Last Filed: 08/13/19 08:57> Subjective Date of Service: 08/13/19 - anterior STEMI Interval History: Patient presented with acute anterior STEMI. Patient states two to three weeks ago he had intermittant coughing with c/o chest pain that occured with exposure to cold air. Last night developed intense substernal chest pain ( heaviness) with associated SOB at midnight. STEMI alert called in ER. Patient taken to lab and underwent MIMI to mid LAD. intensity of pain has improved but continues to c /o mid sternal chest pain however, at this time it is worse with inspiration. He is also c/o weakness but has been hypertensive. With distraction/ conversation weakness improves. Medications Active Medications: Acetaminophen (Tylenol Tab*) 650 mg PO Q4H PRN PRN Reason: PAIN - MILD Aspirin (Aspirin 81 Mg Chew Tab*) 81 mg PO DAILY [facility] Last Admin: 08/13/19 08:37 Dose: 81 mg Docusate Sodium (Colace Cap*) 100 mg PO DAILY PRN PRN Reason: CONSTIPATION Ezetimibe (Zetia Tab*) 10 mg PO 1700 [facility] Sodium Chloride (Ns 0.9% 1000 Ml) 1,000 mls @ 100 mls/hr IV PER RATE [facility] Stop: 08/13/19 13:14 Last Admin: 08/13/19 04:06 Dose: 100 mls/hr Isosorbide Mononitrate (Imdur Er Tab*) 30 mg PO DAILY [facility] Metoprolol Tartrate (Lopressor Tab*) 75 mg PO Q12HR [facility] Nitroglycerin (Nitroglycerin Tab 0.4 Mg*) 0.4 mg SL Q5M PRN PRN Reason: ANGINA Ondansetron HCl (Zofran Inj*) 4 mg IV Q4H PRN PRN Reason: NAUSEA Last Admin: 08/13/19 04:30 Dose: 4 mg Rosuvastatin Calcium (Crestor (Nf)) 5 mg PO DAILY [facility]; Protocol Last Admin: 08/13/19 05:06 Dose: 5 mg Ticagrelor (Brilinta*) 90 mg PO BID [facility] Last Admin: 08/13/19 08:37 Dose: 90 mg Zolpidem Tartrate (Ambien Tab*) 5 mg PO BEDTIME PRN PRN Reason: INSOMNIA Objective Vital Signs: Temp Pulse Resp BP Pulse Ox 99.4 F 81 31 167/102 94 08/13/19 08:00 08/13/19 08:00 08/13/19 08:00 08/13/19 07:45 08/13/19 08:00 Oxygen Devices in Use Now: None, Nasal Cannula Appearance: sitting upright in bed, at bedside. No apparent distress, speaking softly and portraying weakness seems out of proportion to condition given with conversation weakness improves and ability to speak at a normal tone improves. Eyes: No Scleral Icterus, PERRLA Ears/Nose/Mouth/Throat: NL Teeth, Lips, Gums, Clear Oropharnyx, Mucous Membranes Moist Neck: NL Appearance and Movements; NL JVP, Trachea Midline Respiratory: Symmetrical Chest Expansion and Respiratory Effort, Clear to Auscultation Cardiovascular: NL Sounds; No Murmurs; No JVD, RRR, No Edema Extremities: No Edema, - - right radial access site immobilizer removed. right wrist is non tender to palpation. 3+ radial pulse. no hematoma. Skin: No Rash or Ulcers Neurological: Alert and Oriented x 3 Lines/Tubes/Other Access: Clean, Dry and Intact Peripheral IV Laboratory Results: 08/13/19 05:54 08/13/19 05:54 Total Bilirubin 0.60 mg/dL (0.2-1.0) 08/13/19 05:54 AST 176 U/L (13-39) H 08/13/19 05:54 ALT 35 U/L (7-52) 08/13/19 05:54 Alkaline Phosphatase 58 U/L (34-104) 08/13/19 05:54 CK-MB (CK-2) 243.1 ng/mL (0.6-6.3) H 08/13/19 05:54 Total Protein 6.6 g/dL (6.4-8.9) 08/13/19 05:54 Albumin 3.8 g/dL (3.2-5.2) 08/13/19 05:54 Globulin 2.8 g/dL (2-4) 08/13/19 05:54 Albumin/Globulin Ratio 1.4 (1-3) 08/13/19 05:54 Triglycerides 184 mg/dL 08/13/19 05:54 Cholesterol 191 mg/dL 08/13/19 05:54 LDL Cholesterol 115 mg/dL 08/13/19 05:54 HDL Cholesterol 39.6 mg/dL 08/13/19 05:54 08/13/19 05:54 Troponin I 28.48 H* Laboratory Results - last 24 hr 08/13/19 08/13/19 05:54 05:54 WBC 12.8 H RBC 4.94 Hgb 14.8 Hct 44 MCV 88 MCH 30 MCHC 34 RDW 14 Plt Count 228 MPV 7.8 Neut % (Auto) 86.5 Lymph % (Auto) 7.4 [place] % (Auto) 6.0 Eos % (Auto) 0.0 Baso % (Auto) 0.1 Absolute Neuts (auto) 11.0 H Absolute Lymphs (auto) 0.9 L Absolute Monos (auto) 0.8 Absolute Eos (auto) 0.0 Absolute Basos (auto) 0.0 Absolute Nucleated RBC 0.0 Nucleated RBC % 0.1 Sodium 138 Potassium 4.1 Chloride 107 Carbon Dioxide 21 L Anion Gap 10 BUN 18 Creatinine 0.99 Est GFR ( Amer) 91.2 Est GFR (Non-Af Amer) 75.4 BUN/Creatinine Ratio 18.2 Glucose 148 H Calcium 8.4 L Total Bilirubin 0.60 AST 176 H ALT 35 Alkaline Phosphatase 58 Total Creatine Kinase 1720 H CK-MB (CK-2) 243.1 H Troponin I 28.48 H* Total Protein 6.6 Albumin 3.8 Globulin 2.8 Albumin/Globulin Ratio 1.4 Triglycerides 184 Cholesterol 191 LDL Cholesterol 115 HDL Cholesterol 39.6 Diagnostic Imaging: Echo pending. EKG Data: Telemetry; reviewed Sinus rhythm rate 80-110. Rare PVCs no VT/VF ECG 08/13/2019 Sinus rhythm rate 74 with 1.5-2mm ST elevation in lead V1-V4. ST segments have improved since PCI. Now has biphasic anterolateral TW abnormalities with pathologic Q waves noted c/w recent infarct. Assessment/Plan #1 Acute Anterior STEMI; s/p MIMI/mid LAD with known residual disease in OM and Diag. Prior Lcx stent patent. Troponin has not peaked. Will continue to cycle. Right radial access site is intact, no hematoma. Echocardiogram is pending for assessment of LV function. Patient continues to have substernal CP with c/o weakness and lightheadedness. Symptoms seem out of proportion to presentation given culprit lesion was opened. Symptoms improve with distration and conversation and are worse with inspiration. ECG shows improvement in anterior ST segment elevation. Will await echo to ensure no new WMA. Update BNP. Will add imdur 30/day, increase Lopressor to 75BID and will consider adding ACEI depending upon BP response to medication changes. Will follow closely. He is on DAPT ( ASA 81/day in combination with Brilinta 90 BID) he will need uninterrupted DAPT for at least 12 months given presentation was STEMI. In the past he has had c/o weakness with Lipitor it is possible a component of symptoms is related to administration of Crestor but is unlikely. Will order U Tox screen. #2 h/o HTN; Will increase Lopressor to 75 BID, Add Imdur 30/day. Consider adding ACEI later this morning depending on patient's BP response to medication changes. #3 Elevated glucose on chemistry; Will update HgbA1C. If elevated he will need close follow up with PCP for consideration of SGLT2 inhibitor especially if LV function is reduced. #4 h/o HLD; LDL 115. Goal LDL <70 ( CAD history). Now on Zetia. h/o Statin intolerance. He may be an ideal candidate for PCSK9 inhibitor. this can be evaluated outpatient. #5 Disposition pending course. Patient full code. Case discussed with attending intervenional bread baker Dr. Sherwood who agrees with above assessment and plan. Will follow closely and make further recommendations following echo and patient's response to medication changes Attending: Jethro Sherwood <Jethro Sherwood - Last Filed: 08/13/19 11:12> Medications Active Medications: Acetaminophen (Tylenol Tab*) 650 mg PO Q4H PRN PRN Reason: PAIN - MILD Aspirin (Aspirin 81 Mg Chew Tab*) 81 mg PO DAILY [facility] Last Admin: 08/13/19 08:37 Dose: 81 mg Docusate Sodium (Colace Cap*) 100 mg PO DAILY PRN PRN Reason: CONSTIPATION Ezetimibe (Zetia Tab*) 10 mg PO 1700 [facility] Enoxaparin Sodium (Lovenox(*)) 40 mg SUBCUT Q24H [facility] Sodium Chloride (Ns 0.9% 1000 Ml) 1,000 mls @ 100 mls/hr IV PER RATE [facility] Stop: 08/13/19 13:14 Last Admin: 08/13/19 04:06 Dose: 100 mls/hr Isosorbide Mononitrate (Imdur Er Tab*) 60 mg PO DAILY [facility] Lisinopril (Prinivil Tab*) 5 mg PO DAILY [facility] Last Admin: 08/13/19 11:05 Dose: 5 mg Metoprolol Tartrate (Lopressor Tab*) 75 mg PO Q12HR [facility] Last Admin: 08/13/19 09:12 Dose: 75 mg Nitroglycerin (Nitroglycerin Tab 0.4 Mg*) 0.4 mg SL Q5M PRN PRN Reason: ANGINA Ondansetron HCl (Zofran Inj*) 4 mg IV Q4H PRN PRN Reason: NAUSEA Last Admin: 08/13/19 04:30 Dose: 4 mg Rosuvastatin Calcium (Crestor (Nf)) 5 mg PO DAILY [facility]; Protocol Last Admin: 08/13/19 09:12 Dose: 5 mg Ticagrelor (Brilinta*) 90 mg PO BID [facility] Last Admin: 08/13/19 08:37 Dose: 90 mg Zolpidem Tartrate (Ambien Tab*) 5 mg PO BEDTIME PRN PRN Reason: INSOMNIA Objective Vital Signs: Temp Pulse Resp BP Pulse Ox 99.4 F 103 23 174/115 91 08/13/19 08:00 08/13/19 11:00 08/13/19 11:00 08/13/19 11:00 08/13/19 11:00 Laboratory Results: 08/13/19 05:54 08/13/19 05:54 Total Bilirubin 0.60 mg/dL (0.2-1.0) 08/13/19 05:54 AST 176 U/L (13-39) H 08/13/19 05:54 ALT 35 U/L (7-52) 08/13/19 05:54 Alkaline Phosphatase 58 U/L (34-104) 08/13/19 05:54 CK-MB (CK-2) 243.1 ng/mL (0.6-6.3) H 08/13/19 05:54 Total Protein 6.6 g/dL (6.4-8.9) 08/13/19 05:54 Albumin 3.8 g/dL (3.2-5.2) 08/13/19 05:54 Globulin 2.8 g/dL (2-4) 08/13/19 05:54 Albumin/Globulin Ratio 1.4 (1-3) 08/13/19 05:54 Triglycerides 184 mg/dL 08/13/19 05:54 Cholesterol 191 mg/dL 08/13/19 05:54 LDL Cholesterol 115 mg/dL 08/13/19 05:54 HDL Cholesterol 39.6 mg/dL 08/13/19 05:54 08/13/19 05:54 Troponin I 28.48 H* Assessment/Plan Points of Discussion: I personally saw and examined the patient. I agree with the above plan of action. We will increase oral medication to control blood pressure and wean off IV NTG. We will await the official report of the echocardiogram with respect to overall LV systolic function and valvular pathology.
[2019-08-13 09:32] LABS: Urine Benzodiazepine Screen Presumptive Positive (None Detect); Urine Opiates Screen Presumptive Positive (None Detect)
--- NOTE | 2019-08-13 11:03 | ECHO ---
*[facility]* [place] [address] Fax #: [phone] Transthoracic Echocardiogram (Report amended [id number]) Patient: Tyrell Thomas : 1950 Study Date: 08/13/2019 Age: 69 Gender: M HR: 79 bpm Height: 70 in /177.8 cm BSA: 2.02 m^2 Weight: 184.6 lb /83.9 kg BMI: 26.5 kg/m^2 *Facing Slitter: * Estefany Parks [facility] *Referring Physician: * Jethro Sherwood MD *Reading Physician: * Laura Moffett MD Indications: Myocardial Infarction (new). History: PMH: Myocardial infarction (2018). Risk factors: Hypertension. Dyslipidemia. Labs, prior tests, procedures, and surgery: Catheterization (2018). There was a stenosis which was treated with a stent. Conclusions Summary: - Left ventricle: Systolic function is moderately reduced. The estimated ejection fraction is 30-35%. Hypokinesis of the mid-apicalanteroseptal and inferoseptal myocardium. - Mitral valve: There is trace regurgitation. - Aortic valve: There is trace regurgitation. - Tricuspid valve: There is trace regurgitation. - Pericardium, extracardiac: There is no significant pericardial effusion. - C/t 05/01/2018, left ventricle ejection fraction was reported 50-55% then Study data: Transthoracic echocardiogram. Procedure: Transthoracic echocardiography was performed. Image quality was fair. Intravenous Definity , 3 mlswas administered. Complete 2D, spectral Doppler, and color flow Doppler. Location: ICU Patient status: Inpatient. Patient room number: ICU-04. Rhythm: Normal sinus rhythm with PVC's. Findings Left ventricle: The cavity size is normal. Wall thickness is mildly increased. Systolic function is moderately reduced. The estimated ejection fraction is 30-35%. Regional wall motion abnormalities: Hypokinesis of the mid-apicalanteroseptal and inferoseptal myocardium. Hypokinesis of the apicalanterior and inferior myocardium. Hypokinesis of the apicalanterolateral myocardium. Doppler parameters are consistent with abnormal left ventricular relaxation (grade 1 diastolic dysfunction). Right ventricle: The cavity size is mildly to moderately dilated. Systolic function is low normal. Left atrium: The atrium is normal in size. Right atrium: The atrium is normal in size. Mitral valve: The leaflets are mildly thickened. There is no evidence of stenosis. There is trace regurgitation. Aortic valve: The valve is trileaflet. The leaflets are mildly thickened. There is no evidence of stenosis. There is trace regurgitation. Tricuspid valve: The leaflets are normal thickness. There is no evidence of stenosis. There is trace regurgitation. Pulmonic valve: The leaflets are normal thickness. There is no evidence of stenosis. There is trace regurgitation. Aorta: Aortic root: The aortic root is mildly dilated. Ascending aorta: The ascending aorta is appears normal. Aortic arch: The aortic arch is appears normal. Pericardium: There is no significant pericardial effusion. Pulmonary arteries: The main pulmonary artery is normal-sized. Systolic pressure can not be accurately estimated. Systemic veins: Inferior vena cava: The vessel is normal in size. There is (>= 50%) respiratory change in the IVC dimension. Measurements Left ventricle Value Ref Right atrium continued Value Ref JENSEN, LAX 4.5 cm 4.2 - 5.8 ML dim, ES, A4C 3.4 cm 2.6 - 4.4 ESD, LAX 3.9 cm 2.5 - 4.0 Estimated RAP 3 mm Hg --------- FS, LAX (L) 14 % 25 - 43 PW, ED, LAX (H) 1.2 cm 0.6 - 1.0 Aortic valve Value Ref FS (L) 14 % 25 - 43 Giana diam, ED 2.1 cm --------- Mid-wall FS 7 % Peak v, S 1.28 m/sec --------- PW, ED (H) 1.2 cm 0.6 - 1.0 VTI, S 19.6 cm --------- E', lat giana, TDI (L) 4.9 cm/sec >=10.0 Mean grad, S 3.0 mm Hg -- ------- E/e', lat giana, 8 Peak grad, S 7.0 mm Hg ----- ---- TDI LVOT/AV, VTI ratio 0.96 --------- E', med giana, TDI (L) 5.4 cm/sec >=7.0 E/e', med giana, 7 Mitral valve Value Ref TDI Peak E 0.37 m/sec --------- E', avg, TDI 5.2 cm/sec Peak A 0.7 m/sec ----- ---- E/e', avg, TDI 7 <=14 Decel time 271 ms -- ------- Peak E/A ratio 0.5 --------- LVOT Value Ref Peak marc, S 1.05 m/sec Pulmonic valve Value Ref VTI, S 18.8 cm Peak v, S 1.19 m/sec --------- Mean grad, S 3 mm Hg Peak grad, S 6.0 mm Hg --------- Ventricular septum Value Ref Aortic root Value Ref IVS, ED (H) 1.1 cm 0.6 - 1.0 Root diam 3.9 cm <4.2 Right ventricle Value Ref Ascending aorta Value Ref JENSEN, LAX 3.6 cm AAo AP diam, S 3.3 cm --------- JENSEN minor ax, A4C (H) 4.1 cm 1.9 - 3.5 mid Aortic arch Value Ref Arch diam 2.4 cm --------- Left atrium Value Ref AP dim, ES 3.70 cm 3.00 - Decending aorta Value Ref 4.00 Jeannine peak marc 0.6 m/sec --------- ML dim, A4C 4.0 cm SI dim, A4C 5.1 cm Inferior vena cava Value Ref Vol/bsa, ES, 1-p 24 ml/m^2 12 - 37 Diam 2.0 cm --------- A4C Vol/bsa, ES, A/L 26 ml/m^2 16 - 34 Right atrium Value Ref SI dim, ES 3.9 cm 3.4 - 5.3 Legend: (L) and (H) isabella values outside specified reference range. Amended Laura Moffett MD 08/13/2019 11:04
[2019-08-13] MEDS ORDERED: Isosorbide Mononitrate ER TAB* 30 MG PO ONE (11:04)
[2019-08-13] MEDS: Lisinopril TAB* 5 MG PO SCH (11:05)
[2019-08-13] MEDS ORDERED: Furosemide IV* 10 MG/ML 2 ML VIAL (20 MG) IV ONE (11:29)
[2019-08-13] MEDS: Enoxaparin(*) 40 MG/0.4 ML SYR SUBCUT SCH (11:59)
[2019-08-13] MEDS ORDERED: nitroGLYCERIN DRIP* 25,000 MCG/250 ML BTL ONE (12:03)
[2019-08-13] MEDS ORDERED: Metoprolol Tartrate IV* 1 MG/ML 5 ML VIAL IV ONE (12:06)
[2019-08-13 13:01] LABS: Creatine Kinase 1930 U/L (10-223)
[2019-08-13 13:06] LABS: CKMB ng/mL 246.6 ng/mL (0.6-6.3)
[2019-08-13 13:10] LABS: Troponin I > 81.00 ng/mL (<0.03)
[2019-08-13 13:49] LABS: Anion Gap 14 mmol/L (2-11); CO2 Carbon Dioxide 22 mmol/L (22-32); Calcium 8.8 mg/dL (8.6-10.3); Chloride 100 mmol/L (101-111); Potassium 3.6 mmol/L (3.5-5.0); Sodium 136 mmol/L (135-145)
[2019-08-13 13:54] LABS: BUN/Creatinine Ratio 13.6 (8-20); Blood Urea Nitrogen 16 mg/dL (6-24); EGFR African American 74.5 (>60); EGFR Non-African American 61.6 (>60); Glucose 183 mg/dL (70-100)
[2019-08-13] MEDS ORDERED: Ezetimibe TAB* 10 MG PO SCH (17:00)
[2019-08-13 18:35] LABS: Creatine Kinase 1301 U/L (10-223)
[2019-08-13 18:44] LABS: Troponin I 58.85 ng/mL (<0.03)
[2019-08-13] MEDS: Metoprolol Tartrate TAB* 25 MG PO SCH (20:06)
[2019-08-14] MEDS: Metoprolol Tartrate TAB* 25 MG PO SCH (05:12)
[2019-08-14 05:51] LABS: BUN/Creatinine Ratio 17.6 (8-20); Calcium 8.7 mg/dL (8.6-10.3); EGFR African American 100.6 (>60); EGFR Non-African American 83.1 (>60); Potassium 3.6 mmol/L (3.5-5.0)
--- NOTE | 2019-08-14 08:23 | PN ---
Subjective Date of Service: 08/14/19 - Anterior STEMI, ICM Interval History: Patient presented with acute anterior STEMI. Patient states two to three weeks ago he had intermittent coughing with c/o chest pain that occurred with exposure to cold air. Prior to presenting to [facility] he developed intense substernal chest pain ( heaviness) with associated SOB at midnight. STEMI alert called in ER. Patient taken to lab and underwent MIMI to mid LAD. intensity of pain has improved but he continued to c/o mid sternal chest pain post [facility] . Echo was updated. LVEF 30-35% with mid apical anteroseptal hypokinesis and inferoseptal hypokinesis. Troponin peaked and is trending down. No recurrent chest pain since yesterday evening after he was given Tylenol. No recurrent N/V since yesterday afternoon. Had an isolated elevated temperature at 100.5 at 2000 on 08/13/19 no recurrent documented fever since. Denies abdominal pain, diarrhea, nausea, coughing. Adds that he feels great this morning. Medications Active Medications: Acetaminophen (Tylenol Tab*) 650 mg PO Q4H PRN PRN Reason: PAIN - MILD Last Admin: 08/13/19 17:15 Dose: 650 mg Aspirin (Aspirin 81 Mg Chew Tab*) 81 mg PO DAILY [facility] Last Admin: 08/13/19 08:37 Dose: 81 mg Docusate Sodium (Colace Cap*) 100 mg PO DAILY PRN PRN Reason: CONSTIPATION Ezetimibe (Zetia Tab*) 10 mg PO 1700 [facility] Enoxaparin Sodium (Lovenox(*)) 40 mg SUBCUT Q24H [facility] Last Admin: 08/13/19 11:59 Dose: 40 mg Nitroglycerin/Dextrose (Nitroglycerin Drip*) 25,000 mcg in 250 mls @ 12 mls/hr IV .PER PROTOCOL [facility]; Protocol Last Admin: 08/13/19 13:15 Dose: 33 mls/hr Isosorbide Mononitrate (Imdur Er Tab*) 60 mg PO DAILY [facility] Lisinopril (Prinivil Tab*) 5 mg PO DAILY [facility] Last Admin: 08/13/19 11:05 Dose: 5 mg Metoprolol Tartrate (Lopressor Tab*) 50 mg PO Q8H [facility] Last Admin: 08/14/19 05:12 Dose: 50 mg Nitroglycerin (Nitroglycerin Tab 0.4 Mg*) 0.4 mg SL Q5M PRN PRN Reason: ANGINA Ondansetron HCl (Zofran Inj*) 4 mg IV Q4H PRN PRN Reason: NAUSEA Last Admin: 08/13/19 04:30 Dose: 4 mg Pantoprazole Sodium (Protonix Tab*) 40 mg PO ONCE ONE Stop: 08/14/19 09:01 Rosuvastatin Calcium (Crestor (Nf)) 5 mg PO DAILY KEVIN; Protocol Last Admin: 08/13/19 09:12 Dose: 5 mg Ticagrelor (Brilinta*) 90 mg PO BID KEVIN Last Admin: 08/13/19 20:06 Dose: 90 mg Zolpidem Tartrate (Ambien Tab*) 5 mg PO BEDTIME PRN PRN Reason: INSOMNIA Objective Vital Signs: Temp Pulse Resp BP Pulse Ox 99.9 F 74 17 120/77 95 08/14/19 08:00 08/14/19 08:00 08/14/19 08:00 08/14/19 08:00 08/14/19 08:00 Oxygen Devices in Use Now: None Appearance: sitting upright in bed, NAD, well nouished. A+O x3. Eyes: No Scleral Icterus, PERRLA Ears/Nose/Mouth/Throat: NL Teeth, Lips, Gums, Clear Oropharnyx, Mucous Membranes Moist Neck: NL Appearance and Movements; NL JVP, Trachea Midline Respiratory: Symmetrical Chest Expansion and Respiratory Effort, Clear to Auscultation Cardiovascular: NL Sounds; No Murmurs; No JVD, RRR, No Edema Extremities: No Edema, - - right radial access site immobilizer removed. right wrist is non tender to palpation. 3+ radial pulse. no hematoma. Skin: No Rash or Ulcers Neurological: Alert and Oriented x 3 Lines/Tubes/Other Access: Clean, Dry and Intact Peripheral IV Laboratory Results: 08/13/19 05:54 08/14/19 05:10 Total Bilirubin 0.60 mg/dL (0.2-1.0) 08/13/19 05:54 AST 176 U/L (13-39) H 08/13/19 05:54 ALT 35 U/L (7-52) 08/13/19 05:54 Alkaline Phosphatase 58 U/L (34-104) 08/13/19 05:54 CK-MB (CK-2) 149.0 ng/mL (0.6-6.3) H 08/13/19 18:11 Total Protein 6.6 g/dL (6.4-8.9) 08/13/19 05:54 Albumin 3.8 g/dL (3.2-5.2) 08/13/19 05:54 Globulin 2.8 g/dL (2-4) 08/13/19 05:54 Albumin/Globulin Ratio 1.4 (1-3) 08/13/19 05:54 Triglycerides 184 mg/dL 08/13/19 05:54 Cholesterol 191 mg/dL 08/13/19 05:54 LDL Cholesterol 115 mg/dL 08/13/19 05:54 HDL Cholesterol 39.6 mg/dL 08/13/19 05:54 08/13/19 08/13/19 08/13/19 05:54 12:29 18:11 Troponin I 28.48 H* > 81.00 H* 58.85 H* Laboratory Results - last 24 hr 08/13/19 08/13/19 08/13/19 05:54 09:03 12:29 Sodium 136 Potassium 3.6 Chloride 100 L Carbon Dioxide 22 Anion Gap 14 H BUN 16 Creatinine 1.18 H Est GFR ( Amer) 74.5 Est GFR (Non-Af Amer) 61.6 BUN/Creatinine Ratio 13.6 Glucose 183 H Hemoglobin A1c 6.1 H Lactic Acid Calcium 8.8 Total Creatine Kinase 1930 H CK-MB (CK-2) 246.6 H Troponin I > 81.00 H* Urine Opiates Screen Presumptive positive A Ur Barbiturates Screen None detected Ur Phencyclidine Scrn None detected Ur Amphetamines Screen None detected U Benzodiazepines Scrn Presumptive positive A Urine Cocaine Screen None detected U Cannabinoids Screen None detected 08/13/19 08/13/19 08/13/19 13:22 15:35 18:11 Sodium Potassium Chloride Carbon Dioxide Anion Gap BUN Creatinine Est GFR ( Amer) Est GFR (Non-Af Amer) BUN/Creatinine Ratio Glucose Hemoglobin A1c Lactic Acid 5.1 H* 4.2 H* Calcium Total Creatine Kinase 1301 H CK-MB (CK-2) 149.0 H Troponin I 58.85 H* Urine Opiates Screen Ur Barbiturates Screen Ur Phencyclidine Scrn Ur Amphetamines Screen U Benzodiazepines Scrn Urine Cocaine Screen U Cannabinoids Screen 08/13/19 08/14/19 08/14/19 20:10 02:25 05:10 Sodium 132 L Potassium 3.6 Chloride 100 L Carbon Dioxide 24 Anion Gap 8 BUN 16 Creatinine 0.91 Est GFR ( Amer) 100.6 Est GFR (Non-Af Amer) 83.1 BUN/Creatinine Ratio 17.6 Glucose 136 H Hemoglobin A1c Lactic Acid 3.1 H* 1.7 Calcium 8.7 Total Creatine Kinase CK-MB (CK-2) Troponin I Urine Opiates Screen Ur Barbiturates Screen Ur Phencyclidine Scrn Ur Amphetamines Screen U Benzodiazepines Scrn Urine Cocaine Screen U Cannabinoids Screen Diagnostic Imaging: Study data: Transthoracic echocardiogram. Procedure: Transthoracic echocardiography was performed. Image quality was fair. Intravenous Definity , 3 mlswas administered. Complete 2D, spectral Doppler, and color flow Doppler. Location: ICU Patient status: Inpatient. Patient room number: ICU-04. Rhythm: Normal sinus rhythm with PVC's. Findings Left ventricle: The cavity size is normal. Wall thickness is mildly increased. Systolic function is moderately reduced. The estimated ejection fraction is 30-35%. Regional wall motion abnormalities: Hypokinesis of the mid-apicalanteroseptal and inferoseptal myocardium. Hypokinesis of the apicalanterior and inferior myocardium. Hypokinesis of the apicalanterolateral myocardium. Doppler parameters are consistent with abnormal left ventricular relaxation (grade 1 diastolic dysfunction). Right ventricle: The cavity size is mildly to moderately dilated. Systolic function is low normal. Left atrium: The atrium is normal in size. Right atrium: The atrium is normal in size. Mitral valve: The leaflets are mildly thickened. There is no evidence of stenosis. There is trace regurgitation. Aortic valve: The valve is trileaflet. The leaflets are mildly thickened. There is no evidence of stenosis. There is trace regurgitation. Tricuspid valve: The leaflets are normal thickness. There is no evidence of stenosis. There is trace regurgitation. Pulmonic valve: The leaflets are normal thickness. There is no evidence of stenosis. There is trace regurgitation. Aorta: Aortic root: The aortic root is mildly dilated. Ascending aorta: The ascending aorta is appears normal. Aortic arch: The aortic arch is appears normal. Pericardium: There is no significant pericardial effusion. Pulmonary arteries: The main pulmonary artery is normal-sized. Systolic pressure can not be accurately estimated. Systemic veins: Inferior vena cava: The vessel is normal in size. There is (>= 50%) respiratory change in the IVC dimension. Measurements Left ventricle Value Ref Right atrium continued Value Ref This report is only to be considered final once signed by the Provider(s) as displayed in the "<Electronically Signed by >" field (s). Absence of a signature indicates the report is in a draft status and still needs to be finalized. In the event this document was created by someone other than the signing Provider, the individual initiating the document will be listed in the "Entered by:" or "Dictated by:" erickson. EKG Data: Telemetry; reviewed Sinus rhythm rate 60-70's. Rare PVCs no VT/VF ECG 08/13/2019 Sinus rhythm rate 74 with 1.5-2mm ST elevation in lead V1-V4. ST segments have improved since PCI. Now has biphasic anterolateral TW abnormalities with pathologic Q waves noted c/w recent infarct. ECG 08/14/2019; Sinus rhythm rate [address] elevation in lead V2-V4. Improved since presentation with + biphasic TW c/w recent infarct. Assessment/Plan #1 Acute Anterior STEMI; s/p MIMI/mid LAD with known residual disease in OM and Diag. Prior Lcx stent patent. Troponin peaked on 08/13/19 at >81. Right radial access site is intact, no hematoma. Echocardiogram was updated on 08/13/19 LVEF 30-35%. No recurrent chest pain since he was given Tylenol last night. ECG shows improvement in anterior ST segment elevation. Will reduce Imdur to 30/day , continue Lopressor to 50mg PO TID and continue Lisinopril 5mg/day. Will follow closely. He is on DAPT ( ASA 81/day in combination with Brilinta 90 BID) he will need uninterrupted DAPT for at least 12 months given presentation was STEMI. On Crestor with Zetia and appears to be tolerating. If patient is able to ambulate with no c/o chest pain or ventricular ectopy will transfer to . #2 h/o HTN; now normotensive on current regimen. #3 HgbA1C 6.1% will need to f/u with PCP to address. #4 h/o HLD; LDL 115. Goal LDL <70 ( CAD history). Now on Zetia. h/o Statin intolerance. He may be an ideal candidate for PCSK9 inhibitor. this can be evaluated outpatient. #5 Disposition pending course. Patient full code. Will order lifevest. If patient able to ambulate halls will transfer to . Attending: Jethro Sherwood
[2019-08-14] MEDS ORDERED: Isosorbide Mononitrate ER TAB* 30 MG PO SCH (09:00)
[2019-08-14] MEDS ORDERED: Pantoprazole TAB * 40 MG TAB PO ONE (09:00)
[2019-08-14] MEDS ORDERED: Isosorbide Mononitrate ER TAB* 60 MG PO SCH (09:00)
[2019-08-14] MEDS ORDERED: Lisinopril TAB* 5 MG PO SCH (09:34)
[2019-08-14] MEDS: Lisinopril TAB* 5 MG PO SCH (09:36)
[2019-08-14] MEDS: Aspirin 81 mg CHEW TAB* 81 MG TAB.CHEW PO SCH (09:46)
[2019-08-14] MEDS: Ticagrelor* 90 MG TAB PO SCH ×2 (09:47→19:43)
[2019-08-14] MEDS: CMCS: Rosuvastatin (NF) 5 MG TAB PO SCH (09:49)
[2019-08-14] MEDS: Enoxaparin(*) 40 MG/0.4 ML SYR SUBCUT SCH (12:15)
--- NOTE | 2019-08-14 15:29 | CATH ---
CC: Dr. Tirso Kearns DO, [facility] CARDIAC CATHETERIZATION AND INTERVENTIONAL REPORT: DATE OF PROCEDURE: 08/13/19 INDICATION FOR PROCEDURE: The patient with acute ST-segment elevation anterior wall myocardial infarction with ongoing severe chest discomfort. PROCEDURE: 1. Coronary arteriography, balloon angioplasty, and stenting of the mid LAD utilizing a 2.5 x 28 mm Synergy drug-eluting stent post dilated to 3.2 mm in the proximal to mid portion, balloon angioplasty of the ostium of mid diagonal branch, Left heart catheterization. CONSENT: The patient was interviewed and examined in the emergency room where the risks and benefits were explained. He understood them and wished to proceed. APPROACH UTILIZED: The right radial artery was assessed by ultrasound on immediate arrival in the labor and delivery registered nurse and found to be acceptable by size for an approach. PRE-CARDIAC CATHETERIZATION LABORATORY RESULTS: None were present at the beginning of the case as the patient was emergently done. During the case, laboratory results came back with hemoglobin and hematocrit of 14.6 and 42 with a platelet count of 232,000. BUN of 22, creatinine 1.25, sodium 138, potassium 4.4, chloride 102, bicarb 29. The troponin was 0.21 (of note, there is an error on the computer report from the labor and delivery registered nurse where it was reported as 16.5). EQUIPMENT UTILIZED: 1. Right radial artery sheath: A 6-Ivorian Glidesheath. 2. Diagnostic coronary catheter was a 5-Ivorian TIG 4 curve catheter. 3. Diagnostic guidewires utilized were both a Wholey 145 cm length wire for initial delivery of the catheters and a Bazzi exchange length curve-tipped wire for catheter exchanges. 4. The interventional guiding catheter was a 6-Ivorian VL 3.5 curved left coronary guide catheter. 5. Interventional wires utilized - 190 cm All Star, 300 length All Star, 190 cm length BMW. 6. Balloon angioplasty catheters utilized included a 2.0 x 12 mm long Emerge, a 2.0 x 15 mm long Emerge, a 2.0 x 8 mm long Emerge, a 2.5 x 15 mm long Emerge, a 2.75 x 8 mm long NC Emerge, a 3.0 x 8 mm long NC Emerge. 7. The stent utilized was a 2.5 x 28 mm long Synergy drug-eluting stent. 8. A microcatheter utilized to help cannulate the diagonal branch - a 150 cm length SuperCross RX 45-degree catheter. 9. The left heart catheterization catheter was a 5-Ivorian pigtail catheter. MEDICATIONS GIVEN: 1. The patient had already received heparin bolus, full dose aspirin, and 180 mg of Brilinta in the emergency room. 2. The patient received a radial artery cocktail including 300 mcg of nitroglycerin and 3 mg of verapamil. 3. The patient had 1% lidocaine for local anesthesia. 4. The patient had a total of 37.5 mcg of fentanyl and 2 mg of Versed for sedation. 5. The patient received an additional 2000 units of heparin in the labor and delivery registered nurse for anticoagulation. 6. The patient also received 150 mg of intracoronary nitroglycerin. DESCRIPTION OF PROCEDURE: The patient was brought to the cardiovascular laboratory and a formal time-out was performed. He was prepped and draped in sterile fashion, and under ultrasound guidance, the right radial artery was cannulated and sheath was placed. Coronary arteriography was performed. Following this, decision was made to intervene into the left anterior descending artery. ACT was checked. Additional heparin was given. Guide catheter was placed. An All Star wire was advanced down the left anterior descending artery. Following this, a BMW was inserted and utilizing a SuperCross microcatheter with a 45-degree angle, the diagonal branch was eventually able to be cannulated. Kissing balloon angioplasty was performed with a 2.0 x 12 mm long Emerge balloon in the diagonal and a 2.5 x 15 mm long balloon in the LAD. Following this, the balloons were removed. POT was performed. Kissing balloon angioplasty was eventually performed again. After this, the artery was assessed both with the wire in place and wire removed. Left heart catheterization was performed. Left ventriculography was not performed. The total contrast used was 225 cc of Visipaque dye. The radiation exposure included 24 minutes of fluoro time. The air kerma radiation was 3596 mGy. The DAP radiation was 19,729 microgray per meter squared. At the end of the case, the catheter and sheath were removed and hemostasis was maintained with a Vasc Band. The reverse Barbeau was a B. RESULTS: HEMODYNAMIC DATA: Left heart catheterization revealed central aortic pressure was 165/90 with a mean of 119, left ventricular pressure 174 over left ventricular end- diastolic pressure of 30. CORONARY ARTERIOGRAPHY: A. Left coronary artery: 1. Left main - the left main was very short in nature with no significant obstruction. 2. Left anterior descending artery. The left anterior descending artery had a proximal narrowing of 25% to 30%. Past this point, the mid segment tapered after the first diagonal branch into a critical complex 95% to 99% lesion involving the second diagonal branch. There was JESSICA 2 flow in the left anterior descending artery itself past this point and the second diagonal branch had JESSICA 1 flow. The mid portion of the LAD had a 55% lesion followed by a 45% to 50% lesion seen in its most distal portion before it turned onto the inferior surface of the heart. 3. Circumflex artery - a nondominant vessel supplying a small trifurcation marginal branch followed by a small caliber first obtuse marginal branch. Just prior to the third obtuse marginal branch, there was an area of 50 % narrowing. The third obtuse marginal branch had an ostial narrowing which appeared in its worst view to be 70%. The continuation of the circumflex supplied a low-lying obtuse marginal branch, which was stented from before. There was mild in-stent restenosis noted with minimal luminal reduction of 15% to 20%. B. Right coronary artery - a dominant vessel supplying a bifurcating PDA and multiple posterior left ventricular branches. There was a mid narrowing in the right coronary artery of 45% in its worst view. There was no other significant lesion seen throughout the right coronary artery. INTERVENTION INTO MID LAD BIFURCATING LESION: Successful balloon angioplasty and placement of a 2.5 x 28 mm long Synergy drug-eluting stent post dilated to as high as 3.2 mm proximally with JESSICA 3 flow , no dissection seen and 0% residual stenosis within the area. Balloon angioplasty of diagonal branch reducing 95% to 99% with residual stenosis of 60% with JESSICA 3 flow, no dissection seen. OVERALL ASSESSMENT: The patient now with anterior wall ST-segment elevation myocardial infarction with intervention in both the LAD with stenting and balloon angioplasty in the diagonal branch. At this point in time, aggressive dual antiplatelet therapy will be pursued with strong risk factor management with aggressive blood pressure control. Of note, the patient has not been on statins because he has had a bad reaction to them in the past. So now, we will try to add Zetia and consider low-dose pravastatin for now and plan on switching him over to the subcutaneous medications as an outpatient. We will cycle his enzymes and get an echocardiogram in the morning for overall left ventricular systolic function. The patient already is not a smoker and as such we will not have to deal with this. [id number]/[facility] #: [id number] CANDELARIO
[2019-08-14] MEDS: Ezetimibe TAB* 10 MG PO SCH (18:03)
[2019-08-14] MEDS ORDERED: Metoprolol Succinate XL TAB* 50 MG PO ONE (20:00)
[2019-08-15 06:14] LABS: BUN/Creatinine Ratio 21.4 (8-20); Calcium 8.2 mg/dL (8.6-10.3); EGFR Non-African American 54.6 (>60); Potassium 3.7 mmol/L (3.5-5.0)
[2019-08-15] MEDS ORDERED: NS 0.9% 1000 ML** 1,000 ML IV SCH (08:45)
[2019-08-15] MEDS ORDERED: Metoprolol Succinate XL TAB* 50 MG PO SCH (09:00)
[2019-08-15] MEDS ORDERED: Lisinopril TAB* 5 MG PO SCH (09:00)
[2019-08-15] MEDS ORDERED: Metoprolol Succinate XL TAB* 25 MG PO SCH (09:00)
[2019-08-15] MEDS: Aspirin 81 mg CHEW TAB* 81 MG TAB.CHEW PO SCH (09:07)
[2019-08-15] MEDS: CMCS: Rosuvastatin (NF) 5 MG TAB PO SCH (09:07)
[2019-08-15] MEDS: Ticagrelor* 90 MG TAB PO SCH ×2 (09:07→21:15)
[2019-08-15] MEDS: Metoprolol Succinate XL TAB* 25 MG PO SCH (11:28)
[2019-08-15] MEDS: Enoxaparin(*) 40 MG/0.4 ML SYR SUBCUT SCH (11:28)
[2019-08-15] MEDS: Ezetimibe TAB* 10 MG PO SCH (17:09)
[2019-08-16 06:55] LABS: BUN/Creatinine Ratio 17.9 (8-20); Calcium 8.3 mg/dL (8.6-10.3); EGFR African American 79.1 (>60); EGFR Non-African American 65.4 (>60); Potassium 3.9 mmol/L (3.5-5.0)
[2019-08-16] MEDS: Metoprolol Succinate XL TAB* 25 MG PO SCH (08:48)
[2019-08-16] MEDS: Aspirin 81 mg CHEW TAB* 81 MG TAB.CHEW PO SCH (08:48)
[2019-08-16] MEDS: Ticagrelor* 90 MG TAB PO SCH (08:48)
[2019-08-16] MEDS: CMCS: Rosuvastatin (NF) 5 MG TAB PO SCH (08:48)
--- NOTE | 2019-08-16 11:08 | ECHO ---
*[facility]* [place] [address] Fax #: [phone] Limited Transthoracic Echocardiogram Patient: Tyrell Thomas : 1950 Study Date: 08/16/2019 Age: 69 Gender: M HR: 63 bpm Height: 70 in /177.8 cm BSA: 2 m^2 Weight: 180.6 lb /82.1 kg BMI: 26 kg/m^2 *Manager Budget: * Estefany Parks [facility] *Referring Physician: * Jethro Sherwood MD *Reading Physician: * Laura Moffett MD Indications: Myocardial Infarction (new). Follow-up. History: Risk factors: Hypertension. Dyslipidemia. Labs, prior tests, procedures, and surgery: Catheterization with coronary intervention. Performed during the current admission. Catheterization with coronary intervention (2018). Conclusions Summary: - Left ventricle: The estimated ejection fraction is 40%. Hypokinesis of the mid-apicalanteroseptal and inferoseptal myocardium. Hypokinesis of the apical myocardium. - C/t 08/13/2019, there is interval left ventricle ejection fraction improvament from 30-35% then. Study data: Transthoracic echocardiogram, limited study. Procedure: Transthoracic echocardiography was performed. Image quality was fair. Location: Bedside. Patient status: Inpatient. Patient room number: 444-02. Rhythm: Normal sinus rhythm with PAC's. Findings Left ventricle: The cavity size is normal. The estimated ejection fraction is 40%. Regional wall motion abnormalities: Hypokinesis of the mid-apicalanteroseptal and inferoseptal myocardium. Hypokinesis of the apical myocardium. Right ventricle: The cavity size is normal. Systolic function is normal. Pericardium: A prominent pericardial fat pad is present. There is no significant pericardial effusion. Measurements Left ventricle Value Ref Left ventricle continued Value Ref ESD/bsa major ax, A4C 4.1 cm/m^2 ---- LINDA, A2C 29.6 cm^2 ------- JENSEN/bsa minor ax, A4C 4.1 cm/m^2 ---- ELYSE, A2C 22.0 cm^2 ------- JENSEN major ax, A2C 9.0 cm ---- FAC, A2C 26 % ------- JENSEN/bsa major ax, A2C 4.5 cm/m^2 ---- EF, 1-p A2C (L) 38 % 48 - 76 Legend: (L) and (H) isabella values outside specified reference range. Prepared and electronically signed by Laura Moffett MD 08/16/2019 11:07
[2019-08-16] MEDS: Enoxaparin(*) 40 MG/0.4 ML SYR SUBCUT SCH (11:58)
[2019-08-16 12:01] VITALS: BP 115/74
--- NOTE | 2019-08-16 12:43 | DS ---
CC: Dr. Tirso Kearns, [facility] * DISCHARGE SUMMARY: DATE OF ADMISSION: 08/13/19 DATE OF DISCHARGE: 08/16/19 FINAL DIAGNOSIS: Acute ST-segment elevation anterior wall myocardial infarction. SECONDARY DIAGNOSES: 1. Hyperlipidemia. 2. Hypertension. 3. Coronary artery disease. DISCHARGE MEDICATIONS: Included: 1. Aspirin 81 mg a day. 2. Zetia 10 mg a day. 3. Metoprolol succinate 12.5 mg a day. 4. Omeprazole 20 mg a day. 5. Rosuvastatin 5 mg a day. 6. Ticagrelor 90 mg twice a day. HISTORY OF PRESENT ILLNESS/HOSPITAL COURSE: The patient is a 69-year-old gentleman with a prior history of coronary artery disease, status post posterior wall myocardial infarction in 2018 with stenting. He presented to the emergency room on this admission in the throes of an acute ST-segment elevation anterior wall myocardial infarction. Please refer to the H and P for complete details of presentation. The patient was taken emergently to the cardiovascular laboratory after being given heparin and loading dose of Brilinta in addition to aspirin. In the cardiac catheterization lab, he underwent emergent intervention for a critically 95% to 99% stenosed mid LAD involving the second diagonal branch. Balloon angioplasty was performed to both with stent placing in the main LAD mid portion. A kissing balloon was performed. At the end of the case, he had JESSICA 3 flow in both vessels. During the course of the hospitalization, his cardiac enzymes peaked with a total CPK of 1930, a MB of 246, and a troponin transiently of greater than 81 with reperfusion. He had an initial echocardiogram performed on 08/13/19, which was interpreted as having moderate left ventricular systolic dysfunction with an EF of 30% to 35% segmentally involving the mid apical, anteroseptal, and inferior septal valdivia. A repeat echocardiogram was performed on the day of discharge that had showed overall left ventricular systolic improvement with an EF of 40% with hypokinesis of the mid apical, anteroseptal, and inferior septal hypokinesis of the apex. During the course of the hospitalization, initially he had significant hypertension that was very aggressively treated. Once this was stabilized, however, he developed low blood pressures in the 90 to 100 range for which medications have to be titrated down. He had an increase in his creatinine as well and at the time of discharge he was discharged home on metoprolol 12.5 mg once a day in addition to his aspirin and Brilinta from a cardiac standpoint. Ideally, he will need to be placed on an CELESTE inhibitor and he will be seeing Dr. Tirso Kearns within the first week of discharge. PHYSICAL EXAMINATION: On the day of discharge, revealed vital signs of approximately 100 to 110 over 69, pulse was 71 and regular, respirations 16, O2 saturation 96% on room air. Neck was supple. There was no obvious increased JVP. Carotid had good upstroke and volume without bruits. Conjunctivae were pink. Sclerae clear. Lungs revealed no accessory muscle usage. They were clear with no active rales, rhonchi, or wheezes. Heart revealed no visible heaves. No palpable heaves or thrills. Normal S1, S2 with no significant systolic or diastolic murmur. Abdomen was soft, nontender. Extremities without edema. The right radial artery was well healed with good antegrade flow. LABORATORY DATA: Laboratory results on the day of discharge revealed sodium of 137, potassium 3.9, chloride 105, bicarb 26, BUN and creatinine of 20 and 1.3 which had improved from 28 and 1.3 from yesterday with mild hydration and holding the CELESTE inhibitor. His lactic acid which was initially 5.1 slowly decreased over the course of the hospitalization and was normal at 1.7 on . He was up walking the halls without any distress or significant symptomatology. DISCHARGE PLAN: At the time of discharge, he was given an education cardiac booklet in addition to his cardiac stent card. He was given his Brilinta card as well. He was given free samples for 1 month of the Brilinta as he was not eligible for the free samples because he had gotten it back in 2018. He has scheduled followup appointment with Dr. Tirso Kearns on 08/21/19 at 2:20 p.m. We had set up a [facility] appointment for him, but at this point in time he wants to wait on that and rethink whether or not he wants to proceed with that. I did explain that I personally called our office and spoke with our nurse, Lauren Vines, to consider starting to work on getting him the subcutaneous injectable antihyperlipidemic agents as he reports intolerance to atorvastatin in the past and pravastatin. Fortunately, as of right now, he seems to tolerate low-dose Crestor; however, clearly this is too low a dose for him to be on and Dr. Tirso Kearns will consider increasing this and seeing if he tolerates it or not. I also have added Zetia to help with this as well. I answered all of his questions to his satisfaction as well as his 's satisfaction. I explained that they should come immediately back to the hospital for these symptoms. They understand that and they should call me if they have any questions. [id number]/[facility] #: [id number] [facility]ENTERMonica
== END 2019-08-16 13:17 | disposition home or self-care (01) | DRG 247 ==
LOC: ICU 03:14 → EDSTATUS 03:39 → MEDTELE 08-14 09:16
PROVIDERS: ADMIT Internal Medicine Cardiovascular Disease; ATTEND Internal Medicine Cardiovascular Disease
PROC: 02703ZZ Dilation of Coronary Artery, One Artery, Percutaneous Approach (ICD-10-PCS; 2019-08-13)
PROC: B211YZZ Fluoroscopy of Multiple Coronary Arteries using Other Contrast (ICD-10-PCS; 2019-08-13)
PROC: 4A023N7 Measurement of Cardiac Sampling and Pressure, Left Heart, Percutaneous Approach (ICD-10-PCS; 2019-08-13)
PROC: 027034Z Dilation of Coronary Artery, One Artery with Drug-eluting Intraluminal Device, Percutaneous Approach (ICD-10-PCS; principal; 2019-08-13 01:30)
DX: I21.09 ST elevation (STEMI) myocardial infarction involving other coronary artery of anterior wall (principal); E78.5 Hyperlipidemia, unspecified; R73.9 Hyperglycemia, unspecified; N18.3 Chronic kidney disease, stage 3 (moderate); I95.9 Hypotension, unspecified; I12.9 Hypertensive chronic kidney disease with stage 1 through stage 4 chronic kidney disease, or unspecified chronic kidney disease; I25.10 Atherosclerotic heart disease of native coronary artery without angina pectoris; Z79.82 Long term (current) use of aspirin; Z79.02 Long term (current) use of antithrombotics/antiplatelets; Z79.899 Other long term (current) drug therapy; Z95.5 Presence of coronary angioplasty implant and graft; Z88.0 Allergy status to penicillin; I25.2 Old myocardial infarction; Z89.022 Acquired absence of left finger(s); Z87.891 Personal history of nicotine dependence; Z28.21 Immunization not carried out because of patient refusal
CPT/HCPCS: 36415; 71045; 80048; 80053; 80061; 80307; 82550; 82553; 83036; 83605; 83880; 84484; 85025; 87641; 93005; 93306; 93308; 99156; 99157; A9270-GY; C1725; C1769; C1876; C1887; C8929; C9606-LD; G0480; J1650; J1940; J2270; J2405; J3490

== ENCOUNTER 2023-06-06 13:26 | Inpatient (IN) ==
[2023-06-06] MEDS ORDERED: fentaNYL 100 mcg/2 ml 50 MCG/ML VIAL ONE ×2 (13:28→14:28)
[2023-06-06] MEDS ORDERED: Heparin 1,000 UNIT/ML 10 ml (10,000 UNITS) CATHLAB/DIALYSIS ONE (13:28)
[2023-06-06] MEDS ORDERED: Heparin 2 UNITS/ML 1000 mls 3,000 ML IV ONE (13:28)
[2023-06-06] MEDS ORDERED: Midazolam 5 mg/5 ml VIAL 1 mg/ml 5 ml VIAL (5 mg) ONE ×2 (13:28→14:28)
[2023-06-06] MEDS ORDERED: niCARdipine 0.1MG/ML IVPREMIX 20 MG/200 ML BAG IV ONE (13:29)
[2023-06-06] MEDS ORDERED: Iohexol 350 (CONTRAST) 200 ML MDV IV ONE (13:29)
[2023-06-06] MEDS ORDERED: nitroGLYCERIN DRIP 25,000 MCG/250 ML BTL ONE (13:29)
[2023-06-06] MEDS ORDERED: Heparin - STEMI 5,000 UNITS/ML 1 ml VIAL IV ONE (13:35)
[2023-06-06] MEDS ORDERED: Lidocaine 1% MPF 5 ML VIAL ONE (13:43)
[2023-06-06 14:14] LABS: Albumin 4.2 g/dL (3.2-5.2); Albumin/Globulin Ratio 1.4 (1-3); Creatinine, Serum 1.17 mg/dL (0.67-1.17); Globulin 2.9 g/dL (2-4); Magnesium 1.9 mg/dL (1.9-2.7); Potassium 4.5 mmol/L (3.5-5.0); Total Bilirubin 0.6 mg/dL (0.2-1.0); Total Protein 7.1 g/dL (6.4-8.9); eGFR CKD-EPI 66.6 (>60)
[2023-06-06] MEDS ORDERED: Eptifibatide IV (Load dose) 2 MG/ML 10 ml VIAL ONE (14:32)
[2023-06-06] MEDS ORDERED: Atropine 0.1 MG/ML 10 ml SYR (1 mg) ONE (14:36)
[2023-06-06] MEDS ORDERED: Iohexol 350 (CONTRAST) 100 ML PAK IV ONE (14:55)
[2023-06-06] MEDS ORDERED: oxyCODONE/Acetamin 5/325 mg TAB PO PRN (15:06)
[2023-06-06] MEDS ORDERED: Ondansetron 4 mg VIAL 2 MG/ML 2 ml VIAL IV PRN (15:06)
[2023-06-06 15:11] LABS: ABS Eosinophils 0.1 10^3/uL (0.0-0.5); ABS Lymphocytes 1.9 10^3/uL (1.0-4.8); ABS Monocytes 0.9 10^3/uL (0.0-1.1); ABS Neutrophils 4.3 10^3/uL (1.5-7.6); ABS Nucleated RBC 0.01 10^3/ul; Eosinophil % 1.3 %; Hematocrit 42.9 % (38-53); Hemoglobin 14.4 g/dL (13.2-16.3); Lymphocyte % 26.5 %; Mean Corpuscular Hgb Conc 33.6 g/dL (31-36); Mean Corpuscular Volume 89.2 fL (80-97); Mean Platelet Volume 7.6 fL (7.5-11.2); Nucleated Red Blood Cells % 0.1 %/100WBC (0.0-0.8); Platelet Count 203 10^3/uL (150-450); Red Blood Count 4.81 10^6/uL (4.06-5.63); Red Cell Distribution Width 13.6 % (12-17); White Blood Count 7.2 10^3/uL (3.6-10.2)
[2023-06-06 16:00] LABS: Activated Partial Thrombo Time 35.4 seconds (26.0-38.0); INR 1.06 (0.83-1.13)
[2023-06-07 05:51] LABS: ABS Eosinophils 0.1 10^3/uL (0.0-0.5); ABS Lymphocytes 1.2 10^3/uL (1.0-4.8); ABS Neutrophils 7.9 10^3/uL (1.5-7.6); ABS Nucleated RBC 0.01 10^3/ul; Eosinophil % 1.2 %; Hematocrit 43.4 % (38-53); Hemoglobin 14.7 g/dL (13.2-16.3); Lymphocyte % 11.3 %; Mean Corpuscular Hemoglobin 30.1 pg (27-33); Mean Corpuscular Hgb Conc 33.8 g/dL (31-36); Mean Corpuscular Volume 89.1 fL (80-97); Mean Platelet Volume 7.1 fL (7.5-11.2); Nucleated Red Blood Cells % 0.1 %/100WBC (0.0-0.8); Platelet Count 203 10^3/uL (150-450); Red Blood Count 4.88 10^6/uL (4.06-5.63); Red Cell Distribution Width 13.7 % (12-17); White Blood Count 10.2 10^3/uL (3.6-10.2)
[2023-06-07 06:12] LABS: Albumin/Globulin Ratio 1.3 (1-3); Calcium 8.9 mg/dL (8.6-10.3); Creatinine, Serum 1.11 mg/dL (0.67-1.17); Globulin 3.1 g/dL (2-4); HDL Cholesterol 46.9 mg/dL; Total Bilirubin 0.9 mg/dL (0.2-1.0); Total Protein 7.1 g/dL (6.4-8.9)
[2023-06-07] MEDS ORDERED: Sulfur Hexaflouride MICROSPHR 25 MG VIAL ONE (08:11)
[2023-06-07] MEDS ORDERED: Prasugrel 10 mg TAB (NF) PO ONE (20:00)
[2023-06-08 05:16] LABS: ABS Eosinophils 0.2 10^3/uL (0.0-0.5); ABS Lymphocytes 1.5 10^3/uL (1.0-4.8); Eosinophil % 1.9 %; Hemoglobin 14.9 g/dL (13.2-16.3); Lymphocyte % 17.8 %; Mean Corpuscular Hemoglobin 30.7 pg (27-33); Mean Corpuscular Hgb Conc 34.6 g/dL (31-36); Mean Corpuscular Volume 88.8 fL (80-97); Mean Platelet Volume 7.2 fL (7.5-11.2); Platelet Count 206 10^3/uL (150-450); Red Blood Count 4.84 10^6/uL (4.06-5.63); Red Cell Distribution Width 13.7 % (12-17); White Blood Count 8.7 10^3/uL (3.6-10.2)
[2023-06-08 05:36] LABS: Calcium 8.8 mg/dL (8.6-10.3); Creatinine, Serum 1.11 mg/dL (0.67-1.17); Magnesium 2.1 mg/dL (1.9-2.7)
[2023-06-08] MEDS ORDERED: Prasugrel 10 mg TAB (NF) PO SCH (09:00)
[2023-06-08 09:55] VITALS: BP 116/83
== END 2023-06-08 09:50 | disposition home or self-care (01) | DRG 322 ==
LOC: ED 13:26 → EDHOLD 13:46 → ICU 13:52
PROVIDERS: ADMIT Internal Medicine; ATTEND Internal Medicine